=== PATIENT | male | born 1965 | race African-American/Black ===

== ENCOUNTER 2017-07-14 19:43 | Inpatient (IN) | payer MEDICAID ==
[~2017-07-14] VITALS: Ht 182.9 cm; Wt 92.3 kg
[~2017-07-14 19:43] MED LIST: LISI-661 PO; OMEP20 PO; QUET300T2 PO; ZOLPIDEM TARTRATE 10 MG TABLET PO PRN
[2017-07-14] MEDS ORDERED: PNEUMOCOCCAL VACCINE POLYVALENT 0.5 ML VIAL [PPSV23] IM ONE (20:15)
[2017-07-14 20:40] LABS: APPEARANCE,URINE CLEAR (CLEAR); GLUCOSE, URINE (UA) NEGATIVE (NEGATIVE); KETONES,URINE NEGATIVE (NEGATIVE); LEUKOCYTE ESTERASE ,URINE NEGATIVE (NEGATIVE); OCCULT BLOOD,URINE NEGATIVE (NEGATIVE); PROTEIN,URINE NEGATIVE (NEGATIVE)
[2017-07-14 20:41] LABS: ADD UA MICROSCOPIC NO
[2017-07-15 06:24] LABS: EOSINOPHILS # (AUTO) 0.19 K/uL (0.00-0.70); EOSINOPHILS % (AUTO) 4.37 % (1.0-6.0); HEMATOCRIT 40.5 % (41-53); HEMOGLOBIN 13.8 g/dL (13.5-17.5); LYMPHOCYTES # (AUTO) 1.3 K/uL (1.0-4.8); LYMPHOCYTES % (AUTO) 31.6 % (22.0-44.0); MEAN CORPUSCULAR HEMOGLOBIN 27.4 pg (26.0-34.0); MEAN CORPUSCULAR HGB CONC 34.1 G/dL (31.0-37.0); MEAN CORPUSCULAR VOLUME 80 fL (80-100); MONOCYTES # (AUTO) 0.2 K/uL (0.1-1.0); MONOCYTES % (AUTO) 4.7 % (2.0-9.0); NEUTROPHILS # (AUTO) 2.5 K/uL (1.8-7.7); NEUTROPHILS % (AUTO) 59.4 % (40.0-70.0); PLATELET COUNT (AUTO) 360 K/uL (150-450); RED BLOOD CELL COUNT(AUTO) 5.04 MIL/uL (4.50-5.90); RED CELL DISTRIBUTION WIDTH 15.3 % (11.5-14.5); WHITE BLOOD COUNT (AUTO) 4.2 K/uL (4.5-11.0)
[2017-07-15 06:40] LABS: HEMOGLOBIN A1C 6.2 % (4.5-6.2)
[2017-07-15 06:42] LABS: ALANINE AMINOTRANSFERASE 24 U/L (12-78); ALBUMIN 3.3 g/dL (3.4-5.0); ANION GAP 10 mmol/L (8-16); ASPARTATE AMINOTRANSFERASE 19 U/L (15-37); BILIRUBIN,TOTAL 0.8 mg/dL (0.1-1.0); CALCIUM, TOTAL 8.4 mg/dL (8.8-10.5); CARBON DIOXIDE 27 mmol/L (22-29); CHLORIDE 107 mmol/L (98-107); CHOL/HDL RATIO 2.3 (4.2-7.3); CREATININE 1.24 mg/dL (0.60-1.30); GLOMERULAR FILTR. RATE CALC > 60 mL/min (>60); POTASSIUM 3.8 mmol/L (3.5-5.1); SODIUM SERUM 144 mmol/L (136-145); TOTAL PROTEIN, SERUM 6.5 g/dL (6.4-8.2); UREA NITROGEN, BLOOD 13 mg/dL (7-18)
[2017-07-15 07:06] LABS: RBC MORPHOLOGY COMMENT NORMAL RBC MORPH
[2017-07-15 07:11] LABS: THYROID STIMULATING HORMONE 0.46 uIU/mL (0.36-3.74)
[2017-07-15] MEDS: LORazepam 2 MG TABLET PO PRN (08:24)
[2017-07-15] MEDS: HALOPERIDOL 5 MG TABLET PO PRN (08:24)
[2017-07-15 08:36] VITALS: BP 146/81
[2017-07-15 08:38] VITALS: BP 146/81
[2017-07-15 08:41] VITALS: BP 146/81
[2017-07-15] MEDS: LISINOPRIL 20 MG TABLET PO SCH (09:00)
[2017-07-15] MEDS: OMEPRAZOLE 20 MG CAPSULE PO SCH (09:00)
[2017-07-15] MEDS ORDERED: ALBUTEROL SULFATE HFA 90 MCG/PUFF 8 GM INHALER IH PRN (19:45)
[2017-07-15] MEDS ORDERED: IBUPROFEN 400 MG TABLET PO PRN (19:45)
[2017-07-15] MEDS ORDERED: ACETAMINOPHEN 325 MG TABLET PO PRN (19:45)
[2017-07-15] MEDS ORDERED: QUEtiapine FUMARATE 300 MG TABLET PO SCH (21:00)
[2017-07-15 21:30] VITALS: BP 124/82
[2017-07-16 00:23] VITALS: BP 110/67
[2017-07-16 08:09] VITALS: BP 100/64
[2017-07-16] MEDS: LISINOPRIL 20 MG TABLET PO SCH (08:56)
[2017-07-16] MEDS: OMEPRAZOLE 20 MG CAPSULE PO SCH (08:56)
[2017-07-16] MEDS: NICOTINE 14 MG/24 HOUR PATCH TD SCH (08:56)
[2017-07-16] MEDS ORDERED: QUEtiapine FUMARATE 25 MG TABLET PO SCH ×2 (09:00→17:00)
[2017-07-16 16:11] VITALS: BP 105/64
[2017-07-16] MEDS: PALIPERIDONE 3 MG ER TABLET PO SCH (17:18)
[2017-07-16] MEDS: SERTRALINE HCL 50 MG TABLET PO SCH (17:18)
[2017-07-16] MEDS: LORazepam 2 MG TABLET PO PRN (17:19)
[2017-07-16] MEDS: HALOPERIDOL 5 MG TABLET PO PRN (17:19)
[2017-07-17 06:42] VITALS: BP 126/69
[2017-07-17 08:32] VITALS: BP 127/62
[2017-07-17] MEDS: NICOTINE 14 MG/24 HOUR PATCH TD SCH (09:31)
[2017-07-17] MEDS: LISINOPRIL 20 MG TABLET PO SCH (09:31)
[2017-07-17] MEDS: PALIPERIDONE 3 MG ER TABLET PO SCH ×2 (09:31→16:52)
[2017-07-17] MEDS: SERTRALINE HCL 50 MG TABLET PO SCH (09:31)
[2017-07-17] MEDS: OMEPRAZOLE 20 MG CAPSULE PO SCH (09:31)
[2017-07-17 09:38] LABS: THYROID STIMULATING HORMONE 0.2 uIU/mL (0.36-3.74)
[2017-07-17 10:37] LABS: HEMOGLOBIN A1C 6.4 % (4.5-6.2)
[2017-07-17 16:47] VITALS: BP 138/82
[2017-07-17] MEDS: HALOPERIDOL 5 MG TABLET PO PRN (16:52)
[2017-07-17] MEDS: LORazepam 2 MG TABLET PO PRN (16:52)
[2017-07-18 00:30] VITALS: BP 110/66
[2017-07-18 08:05] VITALS: BP 108/60
[2017-07-18] MEDS: PALIPERIDONE 3 MG ER TABLET PO SCH ×2 (08:37→16:08)
[2017-07-18] MEDS: OMEPRAZOLE 20 MG CAPSULE PO SCH (08:38)
[2017-07-18] MEDS: SERTRALINE HCL 50 MG TABLET PO SCH (08:38)
[2017-07-18] MEDS: NICOTINE 14 MG/24 HOUR PATCH TD SCH (08:39)
[2017-07-18 08:49] VITALS: BP 103/59
[2017-07-18] MEDS: LISINOPRIL 20 MG TABLET PO SCH (08:49)
[2017-07-18 16:17] VITALS: BP 121/75
[2017-07-19 01:39] VITALS: BP 101/63
[2017-07-19 08:22] VITALS: BP 105/65
[2017-07-19] MEDS: NICOTINE 14 MG/24 HOUR PATCH TD SCH (09:36)
[2017-07-19] MEDS: LISINOPRIL 20 MG TABLET PO SCH (09:36)
[2017-07-19] MEDS: PALIPERIDONE 3 MG ER TABLET PO SCH ×2 (09:36→16:15)
[2017-07-19] MEDS: OMEPRAZOLE 20 MG CAPSULE PO SCH (09:36)
[2017-07-19] MEDS: SERTRALINE HCL 50 MG TABLET PO SCH (09:36)
[2017-07-19 16:17] VITALS: BP 115/63
[2017-07-20 03:18] VITALS: BP 120/76
[2017-07-20] MEDS: SERTRALINE HCL 100 MG TABLET PO SCH (08:50)
[2017-07-20] MEDS: OMEPRAZOLE 20 MG CAPSULE PO SCH (08:50)
[2017-07-20] MEDS: PALIPERIDONE 6 MG ER TABLET PO SCH ×2 (08:50→17:30)
[2017-07-20] MEDS: LISINOPRIL 20 MG TABLET PO SCH (08:50)
[2017-07-20] MEDS: NICOTINE 14 MG/24 HOUR PATCH TD SCH (08:51)
[2017-07-20 09:05] VITALS: BP 110/63
[2017-07-20 16:25] VITALS: BP 110/64
[2017-07-21 04:26] VITALS: BP 109/67
[2017-07-21] MEDS: NICOTINE 14 MG/24 HOUR PATCH TD SCH (08:31)
[2017-07-21] MEDS: SERTRALINE HCL 100 MG TABLET PO SCH (08:31)
[2017-07-21] MEDS: OMEPRAZOLE 20 MG CAPSULE PO SCH (08:31)
[2017-07-21] MEDS: PALIPERIDONE 6 MG ER TABLET PO SCH ×2 (08:31→16:56)
[2017-07-21] MEDS: LISINOPRIL 20 MG TABLET PO SCH (08:31)
[2017-07-21 09:04] VITALS: BP 100/62
[2017-07-21 16:30] VITALS: BP 107/65
[2017-07-22 00:44] VITALS: BP 112/70
[2017-07-22] MEDS: PALIPERIDONE 6 MG ER TABLET PO SCH ×2 (08:41→16:14)
[2017-07-22] MEDS: LISINOPRIL 20 MG TABLET PO SCH (08:41)
[2017-07-22] MEDS: OMEPRAZOLE 20 MG CAPSULE PO SCH (08:41)
[2017-07-22] MEDS: NICOTINE 14 MG/24 HOUR PATCH TD SCH (08:41)
[2017-07-22] MEDS: SERTRALINE HCL 100 MG TABLET PO SCH (08:41)
[2017-07-22 09:39] VITALS: BP 106/62
[2017-07-22 16:24] VITALS: BP 124/69
[2017-07-23 06:00] VITALS: BP 112/76
[2017-07-23] MEDS: LISINOPRIL 20 MG TABLET PO SCH (08:47)
[2017-07-23] MEDS: NICOTINE 14 MG/24 HOUR PATCH TD SCH ×2 (08:47→09:00)
[2017-07-23] MEDS: SERTRALINE HCL 100 MG TABLET PO SCH (08:47)
[2017-07-23] MEDS: PALIPERIDONE 6 MG ER TABLET PO SCH ×2 (08:47→16:27)
[2017-07-23] MEDS: OMEPRAZOLE 20 MG CAPSULE PO SCH (08:47)
[2017-07-23 08:56] VITALS: BP 119/71
[2017-07-23 16:36] VITALS: BP 104/66
[2017-07-24] VITALS: BP 116/60
[2017-07-24 08:23] VITALS: BP 108/65
[2017-07-24] MEDS: NICOTINE 14 MG/24 HOUR PATCH TD SCH (09:30)
[2017-07-24] MEDS: OMEPRAZOLE 20 MG CAPSULE PO SCH (09:30)
[2017-07-24] MEDS: PALIPERIDONE 6 MG ER TABLET PO SCH ×2 (09:30→16:06)
[2017-07-24] MEDS: LISINOPRIL 20 MG TABLET PO SCH (09:30)
[2017-07-24] MEDS: SERTRALINE HCL 100 MG TABLET PO SCH (09:30)
[2017-07-24 16:42] VITALS: BP 111/66
[2017-07-25 06:05] VITALS: BP 106/69
[2017-07-25 08:36] VITALS: BP 114/65
[2017-07-25] MEDS: NICOTINE 14 MG/24 HOUR PATCH TD SCH (09:00)
[2017-07-25] MEDS: LISINOPRIL 20 MG TABLET PO SCH (09:03)
[2017-07-25] MEDS: SERTRALINE HCL 100 MG TABLET PO SCH (09:03)
[2017-07-25] MEDS: OMEPRAZOLE 20 MG CAPSULE PO SCH (09:03)
[2017-07-25] MEDS: PALIPERIDONE 6 MG ER TABLET PO SCH ×2 (09:03→17:19)
[2017-07-25 16:30] VITALS: BP 113/72
[2017-07-26 05:11] VITALS: BP 106/68
[2017-07-26 08:49] VITALS: BP 110/63
[2017-07-26] MEDS: SERTRALINE HCL 100 MG TABLET PO SCH (08:50)
[2017-07-26] MEDS: LISINOPRIL 20 MG TABLET PO SCH (08:50)
[2017-07-26] MEDS: PALIPERIDONE 6 MG ER TABLET PO SCH ×2 (08:50→16:49)
[2017-07-26] MEDS: NICOTINE 14 MG/24 HOUR PATCH TD SCH (08:50)
[2017-07-26] MEDS: OMEPRAZOLE 20 MG CAPSULE PO SCH (08:50)
[2017-07-26 16:34] VITALS: BP 106/61
[2017-07-27 03:12] VITALS: BP 107/68
[2017-07-27 08:18] VITALS: BP 113/59
[2017-07-27] MEDS: NICOTINE 14 MG/24 HOUR PATCH TD SCH ×2 (09:00→10:06)
[2017-07-27] MEDS: OMEPRAZOLE 20 MG CAPSULE PO SCH (10:05)
[2017-07-27] MEDS: LISINOPRIL 20 MG TABLET PO SCH (10:05)
[2017-07-27] MEDS: PALIPERIDONE 6 MG ER TABLET PO SCH ×2 (10:05→16:06)
[2017-07-27] MEDS: SERTRALINE HCL 100 MG TABLET PO SCH (10:05)
[2017-07-27 16:39] VITALS: BP 105/65
[2017-07-28 01:51] VITALS: BP 103/67
[2017-07-28 08:50] VITALS: BP 120/60
[2017-07-28] MEDS: NICOTINE 14 MG/24 HOUR PATCH TD SCH (09:00)
[2017-07-28] MEDS: PALIPERIDONE 6 MG ER TABLET PO SCH ×2 (09:16→16:21)
[2017-07-28] MEDS: LISINOPRIL 20 MG TABLET PO SCH (09:16)
[2017-07-28] MEDS: OMEPRAZOLE 20 MG CAPSULE PO SCH (09:17)
[2017-07-28] MEDS: SERTRALINE HCL 100 MG TABLET PO SCH (09:17)
[2017-07-28 16:27] VITALS: BP 128/72
[2017-07-28] MEDS ORDERED: LISI-662 PO (23:15)
[2017-07-28] MEDS ORDERED: OMEP20 PO (23:15)
[2017-07-28] MEDS ORDERED: SERT100T12 PO (23:15)
[2017-07-28] MEDS ORDERED: PALI6 PO (23:15)
[2017-07-29 01:19] VITALS: BP 107/68
== END 2017-07-29 07:30 | disposition home or self-care (01) | DRG 750 ==
LOC: EMS 19:45 → AHU 07-15 05:37 → B2S 07-15 21:20
PROVIDERS: ADMIT Psychiatry & Neurology Psychiatry; ATTEND Psychiatry & Neurology Psychiatry
PROC: 3E0234Z Introduction of Serum, Toxoid and Vaccine into Muscle, Percutaneous Approach (ICD-10-PCS; principal; 2017-07-15)
DX: F25.0 Schizoaffective disorder, bipolar type (principal); R45.851 Suicidal ideations; I10 Essential (primary) hypertension; J44.9 Chronic obstructive pulmonary disease, unspecified; K21.9 Gastro-esophageal reflux disease without esophagitis; Z91.5 Personal history of self-harm; F12.90 Cannabis use, unspecified, uncomplicated; F15.90 Other stimulant use, unspecified, uncomplicated; R45.84 Anhedonia; F10.20 Alcohol dependence, uncomplicated; Z23 Encounter for immunization
CPT/HCPCS: 83036; 84436; 84439; 84443; 84481; 90471; 96372; 99285

== ENCOUNTER 2017-08-23 14:44 | Inpatient (IN) | payer MEDICAID ==
[~2017-08-23] VITALS: Ht 190.5 cm; Wt 95.7 kg
[~2017-08-23 14:44] MED LIST changes: -LISI-661 PO; +LISI-662 PO; +PALI6 PO; -QUET300T2 PO; +SERT100T12 PO; -ZOLPIDEM TARTRATE 10 MG TABLET PO PRN
[2017-08-23] MEDS ORDERED: INFLUENZA VIRUS VACCINE QVS 2017-18 (3YR+)/PF 60 MCG/0.5 ML SYRINGE IM ONE (16:30)
[2017-08-23] MEDS ORDERED: HALOPERIDOL 5 MG TABLET PO PRN (16:30)
[2017-08-23] MEDS ORDERED: -PHARMACY VACCINE NOTE- MISC ONE ×2 (16:30)
[2017-08-23 17:04] VITALS: BP 143/84
[2017-08-23] MEDS: LISINOPRIL 20 MG TABLET PO SCH (18:08)
[2017-08-23] MEDS: PALIPERIDONE 6 MG ER TABLET PO SCH (20:32)
[2017-08-24 06:22] VITALS: BP 137/82
[2017-08-24 08:20] VITALS: BP 108/67
[2017-08-24] MEDS: PALIPERIDONE 6 MG ER TABLET PO SCH ×2 (08:34→20:36)
[2017-08-24] MEDS: SERTRALINE HCL 100 MG TABLET PO SCH (08:34)
[2017-08-24] MEDS: LISINOPRIL 20 MG TABLET PO SCH (08:34)
[2017-08-24] MEDS: OMEPRAZOLE 20 MG CAPSULE PO SCH (08:35)
[2017-08-24 08:59] LABS: BASOPHILS # (AUTO) 0.02 K/uL (0.00-0.20); BASOPHILS % (AUTO) 0.6 % (0.0-2.0); EOSINOPHILS # (AUTO) 0.14 K/uL (0.00-0.70); EOSINOPHILS % (AUTO) 3.59 % (1.0-6.0); HEMATOCRIT 40.4 % (41-53); HEMOGLOBIN 13.2 g/dL (13.5-17.5); LYMPHOCYTES # (AUTO) 1.5 K/uL (1.0-4.8); LYMPHOCYTES % (AUTO) 38.9 % (22.0-44.0); MEAN CORPUSCULAR HEMOGLOBIN 27.3 pg (26.0-34.0); MEAN CORPUSCULAR HGB CONC 32.8 G/dL (31.0-37.0); MEAN CORPUSCULAR VOLUME 83 fL (80-100); MONOCYTES # (AUTO) 0.2 K/uL (0.1-1.0); MONOCYTES % (AUTO) 5.8 % (2.0-9.0); NEUTROPHILS % (AUTO) 51.2 % (40.0-70.0); PLATELET COUNT (AUTO) 282 K/uL (150-450); RED BLOOD CELL COUNT(AUTO) 4.85 MIL/uL (4.50-5.90); RED CELL DISTRIBUTION WIDTH 16.7 % (11.5-14.5); WHITE BLOOD COUNT (AUTO) 3.9 K/uL (4.5-11.0)
[2017-08-24 09:59] LABS: HEMOGLOBIN A1C 6.3 % (4.5-6.2)
[2017-08-24 10:04] LABS: ALANINE AMINOTRANSFERASE 21 U/L (12-78); ALBUMIN 3.1 g/dL (3.4-5.0); ANION GAP 5 mmol/L (8-16); ASPARTATE AMINOTRANSFERASE 10 U/L (15-37); BILIRUBIN,TOTAL 0.5 mg/dL (0.1-1.0); CALCIUM, TOTAL 8.6 mg/dL (8.8-10.5); CARBON DIOXIDE 31 mmol/L (22-29); CHLORIDE 106 mmol/L (98-107); CHOL/HDL RATIO 2.2 (4.2-7.3); CREATININE 1.16 mg/dL (0.60-1.30); GLOMERULAR FILTR. RATE CALC > 60 mL/min (>60); POTASSIUM 4.2 mmol/L (3.5-5.1); SODIUM SERUM 142 mmol/L (136-145); THYROID STIMULATING HORMONE 0.62 uIU/mL (0.36-3.74); TOTAL PROTEIN, SERUM 5.5 g/dL (6.4-8.2); UREA NITROGEN, BLOOD 10 mg/dL (7-18)
[2017-08-24] MEDS ORDERED: ACETAMINOPHEN 325 MG TABLET PO PRN (15:45)
[2017-08-24] MEDS ORDERED: IBUPROFEN 400 MG TABLET PO PRN (15:45)
[2017-08-24 16:00] VITALS: BP 114/71
[2017-08-24] MEDS: ZOLPIDEM TARTRATE 10 MG TABLET PO PRN (20:36)
[2017-08-25 06:29] VITALS: BP 125/72
[2017-08-25 08:14] VITALS: BP 101/60
[2017-08-25] MEDS: LISINOPRIL 20 MG TABLET PO SCH (08:55)
[2017-08-25] MEDS: PALIPERIDONE 6 MG ER TABLET PO SCH ×2 (08:55→21:01)
[2017-08-25] MEDS: OMEPRAZOLE 20 MG CAPSULE PO SCH (08:55)
[2017-08-25] MEDS ORDERED: SERTRALINE HCL 50 MG TABLET PO SCH (13:26)
[2017-08-25] MEDS ORDERED: SERTRALINE HCL 100 MG TABLET PO SCH (13:26)
[2017-08-25 16:21] VITALS: BP 114/68
[2017-08-25] MEDS: SERTRALINE HCL 100 MG TABLET PO SCH (17:10)
[2017-08-25] MEDS: ZOLPIDEM TARTRATE 10 MG TABLET PO PRN (21:01)
[2017-08-26 06:35] VITALS: BP 127/72
[2017-08-26 09:07] VITALS: BP 104/63
[2017-08-26] MEDS: PALIPERIDONE 6 MG ER TABLET PO SCH ×2 (09:23→21:22)
[2017-08-26] MEDS: LISINOPRIL 20 MG TABLET PO SCH (09:23)
[2017-08-26] MEDS: SERTRALINE HCL 100 MG TABLET PO SCH (09:23)
[2017-08-26] MEDS: OMEPRAZOLE 20 MG CAPSULE PO SCH (09:23)
[2017-08-26 16:41] VITALS: BP 117/67
[2017-08-26] MEDS: LORazepam 2 MG TABLET PO PRN (17:51)
[2017-08-26] MEDS: ZOLPIDEM TARTRATE 10 MG TABLET PO PRN (21:22)
[2017-08-27 06:33] VITALS: BP 102/61
[2017-08-27 08:24] VITALS: BP 104/62
[2017-08-27] MEDS: LISINOPRIL 20 MG TABLET PO SCH (09:11)
[2017-08-27] MEDS: OMEPRAZOLE 20 MG CAPSULE PO SCH (09:11)
[2017-08-27] MEDS: SERTRALINE HCL 100 MG TABLET PO SCH (09:11)
[2017-08-27] MEDS: PALIPERIDONE 6 MG ER TABLET PO SCH ×2 (09:11→21:03)
[2017-08-27 16:00] VITALS: BP 110/66
[2017-08-27] MEDS: LORazepam 2 MG TABLET PO PRN (21:03)
[2017-08-28 05:00] VITALS: BP 117/82
[2017-08-28 08:18] VITALS: BP 103/67
[2017-08-28] MEDS: SERTRALINE HCL 100 MG TABLET PO SCH (09:11)
[2017-08-28] MEDS: LISINOPRIL 20 MG TABLET PO SCH (09:11)
[2017-08-28] MEDS: OMEPRAZOLE 20 MG CAPSULE PO SCH (09:11)
[2017-08-28] MEDS: PALIPERIDONE 6 MG ER TABLET PO SCH ×2 (09:11→20:37)
[2017-08-28 16:00] VITALS: BP 116/68
[2017-08-29 06:35] VITALS: BP 121/78
[2017-08-29 08:17] VITALS: BP 102/61
[2017-08-29] MEDS: LISINOPRIL 20 MG TABLET PO SCH (08:53)
[2017-08-29] MEDS: SERTRALINE HCL 100 MG TABLET PO SCH (08:53)
[2017-08-29] MEDS: OMEPRAZOLE 20 MG CAPSULE PO SCH (08:53)
[2017-08-29] MEDS: PALIPERIDONE 6 MG ER TABLET PO SCH ×2 (08:53→20:32)
[2017-08-29 16:00] VITALS: BP 110/66
[2017-08-29] MEDS: ZOLPIDEM TARTRATE 10 MG TABLET PO PRN (20:32)
[2017-08-30 06:32] VITALS: BP 118/73
[2017-08-30 08:16] VITALS: BP 101/57
[2017-08-30] MEDS: OMEPRAZOLE 20 MG CAPSULE PO SCH (08:16)
[2017-08-30] MEDS: PALIPERIDONE 6 MG ER TABLET PO SCH (08:16)
[2017-08-30] MEDS: SERTRALINE HCL 100 MG TABLET PO SCH (08:16)
[2017-08-30] MEDS: LISINOPRIL 20 MG TABLET PO SCH (08:16)
[2017-08-30] MEDS ORDERED: PALI6 PO (14:10)
[2017-08-30] MEDS ORDERED: SERT100T12 PO (14:10)
[2017-09-24] MEDS ORDERED: PALIPERIDONE PALMITATE 234 MG/1.5 ML SYRINGE IM SCH (09:00)
== END 2017-08-30 14:30 | disposition home or self-care (01) | DRG 750 ==
LOC: B3A 16:19
PROVIDERS: ADMIT Psychiatry & Neurology Psychiatry; ATTEND Psychiatry & Neurology Psychiatry
DX: F25.0 Schizoaffective disorder, bipolar type (principal); R45.851 Suicidal ideations; F15.20 Other stimulant dependence, uncomplicated; R45.850 Homicidal ideations; I10 Essential (primary) hypertension; F32.9 Major depressive disorder, single episode, unspecified; F10.10 Alcohol abuse, uncomplicated; F41.9 Anxiety disorder, unspecified; J44.9 Chronic obstructive pulmonary disease, unspecified; K21.9 Gastro-esophageal reflux disease without esophagitis; Z91.5 Personal history of self-harm; F19.10 Other psychoactive substance abuse, uncomplicated; Z71.41 Alcohol abuse counseling and surveillance of alcoholic; Z71.51 Drug abuse counseling and surveillance of drug abuser; Z28.21 Immunization not carried out because of patient refusal
CPT/HCPCS: 83036; 84439; 84443; 87081

== ENCOUNTER 2017-09-12 00:57 | Inpatient (IN) | payer MEDICAID ==
[~2017-09-12] VITALS: Ht 190.5 cm; Wt 89.8 kg
[2017-09-12 01:30] VITALS: BP 136/96
[2017-09-12] MEDS ORDERED: HALOPERIDOL 5 MG TABLET PO PRN (02:00)
[2017-09-12] MEDS ORDERED: LORazepam 2 MG TABLET PO PRN (02:00)
[2017-09-12 03:05] VITALS: BP 138/67
[2017-09-12] MEDS ORDERED: -PHARMACY VACCINE NOTE- MISC ONE ×2 (06:15)
[2017-09-12] MEDS ORDERED: INFLUENZA VIRUS VACCINE QVS 2017-18 (3YR+)/PF 60 MCG/0.5 ML SYRINGE IM ONE (06:15)
[2017-09-12 08:20] VITALS: BP 136/84
[2017-09-12] MEDS ORDERED: ACETAMINOPHEN 325 MG TABLET PO PRN ×2 (08:30→15:00)
[2017-09-12 10:13] LABS: GLUCOSE, URINE (UA) NEGATIVE (NEGATIVE); KETONES,URINE NEGATIVE (NEGATIVE); LEUKOCYTE ESTERASE ,URINE NEGATIVE (NEGATIVE); OCCULT BLOOD,URINE TRACE (NEGATIVE); PH,URINE 5.5 (5.0-8.0); PROTEIN,URINE TRACE (NEGATIVE)
[2017-09-12 10:17] LABS: ADD UA MICROSCOPIC YES; APPEARANCE,URINE SLIGHTLY CLOUDY (CLEAR)
[2017-09-12 10:19] LABS: RBC,URINE 0-2 /HPF (0-2); WBC,URINE 0-2 /HPF (0-5)
[2017-09-12 10:20] LABS: CALCIUM OXALATE CRYSTALS,UR Many /LPF (None Seen); SQUAMOUS EPITHELIAL CELL,UR Rare /LPF (None Seen)
[2017-09-12 10:21] LABS: URINALYSIS COMMENT Few Sperm seen.
[2017-09-12] MEDS ORDERED: IBUPROFEN 400 MG TABLET PO PRN (15:00)
[2017-09-12] MEDS ORDERED: ALBUTEROL SULFATE HFA 90 MCG/PUFF 8 GM INHALER IH PRN (15:00)
[2017-09-12 16:00] VITALS: BP 115/72
[2017-09-12] MEDS: ZOLPIDEM TARTRATE 10 MG TABLET PO PRN (20:46)
[2017-09-12] MEDS: PALIPERIDONE 6 MG ER TABLET PO SCH (20:46)
[2017-09-13 06:58] VITALS: BP 128/73
[2017-09-13 08:13] VITALS: BP 132/76
[2017-09-13 08:43] LABS: HEMOGLOBIN A1C 6.1 % (4.5-6.2)
[2017-09-13 08:51] LABS: EOSINOPHILS % (AUTO) 7.9 % (1.0-6.0); HEMATOCRIT 39.6 % (41-53); HEMOGLOBIN 13.5 g/dL (13.5-17.5); LYMPHOCYTES # (AUTO) 0.9 K/uL (1.0-4.8); LYMPHOCYTES % (AUTO) 25.1 % (22.0-44.0); MEAN CORPUSCULAR HEMOGLOBIN 27.7 pg (26.0-34.0); MEAN CORPUSCULAR VOLUME 81 fL (80-100); MONOCYTES # (AUTO) 0.3 K/uL (0.1-1.0); NEUTROPHILS # (AUTO) 2.2 K/uL (1.8-7.7); PLATELET COUNT (AUTO) 259 K/uL (150-450); RED BLOOD CELL COUNT(AUTO) 4.86 MIL/uL (4.50-5.90); RED CELL DISTRIBUTION WIDTH 15.7 % (11.5-14.5); WHITE BLOOD COUNT (AUTO) 3.7 K/uL (4.5-11.0)
[2017-09-13 08:59] LABS: ALANINE AMINOTRANSFERASE 29 U/L (12-78); ALBUMIN 3.1 g/dL (3.4-5.0); ANION GAP 3 mmol/L (8-16); ASPARTATE AMINOTRANSFERASE 17 U/L (15-37); BILIRUBIN,TOTAL 0.5 mg/dL (0.1-1.0); CALCIUM, TOTAL 8.7 mg/dL (8.8-10.5); CARBON DIOXIDE 30 mmol/L (22-29); CHLORIDE 106 mmol/L (98-107); CHOL/HDL RATIO 2.1 (4.2-7.3); CREATININE 1.16 mg/dL (0.60-1.30); GLOMERULAR FILTR. RATE CALC > 60 mL/min (>60); POTASSIUM 3.8 mmol/L (3.5-5.1); SODIUM SERUM 139 mmol/L (136-145); THYROID STIMULATING HORMONE 0.29 uIU/mL (0.36-3.74); UREA NITROGEN, BLOOD 13 mg/dL (7-18)
[2017-09-13] MEDS ORDERED: PALIPERIDONE PALMITATE 234 MG/1.5 ML SYRINGE IM SCH (09:00)
[2017-09-13] MEDS: PALIPERIDONE 6 MG ER TABLET PO SCH ×2 (09:57→20:27)
[2017-09-13] MEDS: SERTRALINE HCL 100 MG TABLET PO SCH (09:57)
[2017-09-13 10:36] LABS: RBC MORPHOLOGY COMMENT ABNORMAL RBC MORPH
[2017-09-13 16:00] VITALS: BP 112/73
[2017-09-13] MEDS: ZOLPIDEM TARTRATE 10 MG TABLET PO PRN (20:27)
[2017-09-14 06:42] VITALS: BP 125/80
[2017-09-14] MEDS: PALIPERIDONE 6 MG ER TABLET PO SCH ×2 (08:22→21:05)
[2017-09-14] MEDS: SERTRALINE HCL 100 MG TABLET PO SCH (08:22)
[2017-09-14 08:27] VITALS: BP 117/64
[2017-09-14 16:20] VITALS: BP 124/80
[2017-09-14] MEDS: ZOLPIDEM TARTRATE 10 MG TABLET PO PRN (21:05)
[2017-09-15 06:31] VITALS: BP 119/67
[2017-09-15 08:06] VITALS: BP 116/69
[2017-09-15] MEDS: SERTRALINE HCL 100 MG TABLET PO SCH (09:34)
[2017-09-15] MEDS: PALIPERIDONE 6 MG ER TABLET PO SCH ×2 (09:34→21:06)
[2017-09-15 16:00] VITALS: BP 114/78
[2017-09-15] MEDS: ZOLPIDEM TARTRATE 10 MG TABLET PO PRN (21:06)
[2017-09-16 06:00] VITALS: BP 125/74
[2017-09-16 08:33] VITALS: BP 107/61
[2017-09-16] MEDS: PALIPERIDONE 6 MG ER TABLET PO SCH ×2 (08:39→21:06)
[2017-09-16] MEDS: SERTRALINE HCL 100 MG TABLET PO SCH (08:39)
[2017-09-16 16:12] VITALS: BP 119/67
[2017-09-17 01:45] VITALS: BP 114/63
[2017-09-17 08:03] VITALS: BP 118/67
[2017-09-17] MEDS: SERTRALINE HCL 100 MG TABLET PO SCH (08:04)
[2017-09-17] MEDS: PALIPERIDONE 6 MG ER TABLET PO SCH ×2 (08:04→21:09)
[2017-09-17 16:01] VITALS: BP 129/71
[2017-09-18 04:32] VITALS: BP 119/65
[2017-09-18 08:06] VITALS: BP 111/58
[2017-09-18] MEDS: SERTRALINE HCL 100 MG TABLET PO SCH (08:14)
[2017-09-18] MEDS: PALIPERIDONE 6 MG ER TABLET PO SCH ×2 (08:14→20:24)
[2017-09-18 16:10] VITALS: BP 102/67
[2017-09-19 04:59] VITALS: BP 126/74
[2017-09-19 08:25] VITALS: BP 115/63
[2017-09-19] MEDS: PALIPERIDONE 6 MG ER TABLET PO SCH (09:17)
[2017-09-19] MEDS: SERTRALINE HCL 100 MG TABLET PO SCH (09:17)
== END 2017-09-19 15:15 | disposition home or self-care (01) | DRG 750 ==
LOC: B3A 01:56 → EDSTATUS 01:59 → B2S 09-15 22:00
PROVIDERS: ADMIT Psychiatry & Neurology Psychiatry; ATTEND Psychiatry & Neurology Psychiatry
DX: F25.0 Schizoaffective disorder, bipolar type (principal); R45.850 Homicidal ideations; I10 Essential (primary) hypertension; F41.9 Anxiety disorder, unspecified; F10.10 Alcohol abuse, uncomplicated; J44.9 Chronic obstructive pulmonary disease, unspecified; K21.9 Gastro-esophageal reflux disease without esophagitis; Z91.5 Personal history of self-harm; Z28.21 Immunization not carried out because of patient refusal
CPT/HCPCS: 80307; 83036; 84439; 84443; 87081; 99285

== ENCOUNTER 2017-09-23 01:51 | Emergency (ER) | payer MEDICAID ==
[~2017-09-23] VITALS: Ht 190.5 cm; Wt 90.0 kg
[~2017-09-23 01:51] MED LIST changes: -LISI-662 PO; -OMEP20 PO
[2017-09-23] MEDS ORDERED: LISI10TA7 PO (03:57)
[2017-09-23] MEDS ORDERED: HALOPERIDOL 5 MG TABLET PO ONE (04:00)
[2017-09-23] MEDS ORDERED: LORazepam 2 MG TABLET PO ONE (04:00)
[2017-09-23 04:57] LABS: BASOPHILS % (AUTO) 0.4 % (0.0-2.0); EOSINOPHILS % (AUTO) 1.9 % (1.0-6.0); HEMATOCRIT 38.6 % (41-53); HEMOGLOBIN 13.1 g/dL (13.5-17.5); LYMPHOCYTES # (AUTO) 1.1 K/uL (1.0-4.8); LYMPHOCYTES % (AUTO) 26.3 % (22.0-44.0); MEAN CORPUSCULAR HEMOGLOBIN 27.7 pg (26.0-34.0); MEAN CORPUSCULAR HGB CONC 33.8 G/dL (31.0-37.0); MEAN CORPUSCULAR VOLUME 82 fL (80-100); MONOCYTES # (AUTO) 0.4 K/uL (0.1-1.0); MONOCYTES % (AUTO) 10.2 % (2.0-9.0); NEUTROPHILS # (AUTO) 2.5 K/uL (1.8-7.7); NEUTROPHILS % (AUTO) 61.2 % (40.0-70.0); PLATELET COUNT (AUTO) 308 K/uL (150-450); RED BLOOD CELL COUNT(AUTO) 4.72 MIL/uL (4.50-5.90); RED CELL DISTRIBUTION WIDTH 15.6 % (11.5-14.5); WHITE BLOOD COUNT (AUTO) 4.1 K/uL (4.5-11.0)
[2017-09-23 05:05] LABS: ANION GAP 7 mmol/L (8-16); CALCIUM, TOTAL 8.9 mg/dL (8.8-10.5); CARBON DIOXIDE 30 mmol/L (22-29); CHLORIDE 104 mmol/L (98-107); GLOMERULAR FILTR. RATE CALC > 60 mL/min (>60); POTASSIUM 3.7 mmol/L (3.5-5.1); SODIUM SERUM 141 mmol/L (136-145); UREA NITROGEN, BLOOD 17 mg/dL (7-18)
[2017-09-23 05:20] LABS: ALANINE AMINOTRANSFERASE 30 U/L (12-78); ALBUMIN 3.7 g/dL (3.4-5.0); ASPARTATE AMINOTRANSFERASE 23 U/L (15-37); BILIRUBIN,TOTAL 0.6 mg/dL (0.1-1.0); TOTAL PROTEIN, SERUM 6.8 g/dL (6.4-8.2)
[2017-09-23 08:20] VITALS: BP 131/89
== END 2017-09-23 08:11 | disposition home or self-care (01) ==
LOC: EMS 03:38
DX: F20.0 Paranoid schizophrenia (principal); J44.9 Chronic obstructive pulmonary disease, unspecified; K21.9 Gastro-esophageal reflux disease without esophagitis; F17.210 Nicotine dependence, cigarettes, uncomplicated; I10 Essential (primary) hypertension; F12.90 Cannabis use, unspecified, uncomplicated; F19.90 Other psychoactive substance use, unspecified, uncomplicated
CPT/HCPCS: 36415; 80053; 84443; 85025; 93005; 99285; 99406; G0480

== ENCOUNTER 2017-11-17 21:15 | Inpatient (IN) | payer MEDICAID ==
[~2017-11-17] VITALS: Ht 190.5 cm; Wt 102.1 kg
[~2017-11-17 21:15] MED LIST changes: +LISI10TA7 PO
[2017-11-17] MEDS ORDERED: ZOLPIDEM TARTRATE 10 MG TABLET PO PRN (21:45)
[2017-11-17] MEDS ORDERED: LORazepam 2 MG TABLET PO PRN (21:45)
[2017-11-17 21:48] VITALS: BP 142/97
[2017-11-17] MEDS ORDERED: INFLUENZA VIRUS VACCINE QVS 2017-18 (3YR+)/PF 60 MCG/0.5 ML SYRINGE IM ONE (22:00)
[2017-11-18] VITALS: BP 130/80
[2017-11-18 08:40] VITALS: BP 129/88
[2017-11-18] MEDS: LISINOPRIL 20 MG TABLET PO SCH (08:41)
[2017-11-18] MEDS: SERTRALINE HCL 100 MG TABLET PO SCH (12:40)
[2017-11-18 16:00] VITALS: BP 128/67
[2017-11-19 00:05] VITALS: BP 121/69
[2017-11-19 08:33] VITALS: BP 124/78
[2017-11-19] MEDS: PALIPERIDONE 6 MG ER TABLET PO SCH (09:00)
[2017-11-19] MEDS: LISINOPRIL 20 MG TABLET PO SCH (09:20)
[2017-11-19] MEDS: SERTRALINE HCL 100 MG TABLET PO SCH (09:20)
[2017-11-19 16:19] VITALS: BP 139/92
[2017-11-20 05:54] VITALS: BP 133/89
[2017-11-20] MEDS: LISINOPRIL 20 MG TABLET PO SCH (08:48)
[2017-11-20 08:49] VITALS: BP 130/79
[2017-11-20] MEDS: SERTRALINE HCL 100 MG TABLET PO SCH (08:51)
[2017-11-20] MEDS: PALIPERIDONE 6 MG ER TABLET PO SCH (08:51)
[2017-11-20 16:18] VITALS: BP 127/74
[2017-11-21 05:40] VITALS: BP 125/68
[2017-11-21] MEDS: LISINOPRIL 20 MG TABLET PO SCH (08:22)
[2017-11-21] MEDS: SERTRALINE HCL 100 MG TABLET PO SCH (08:22)
[2017-11-21] MEDS: PALIPERIDONE 6 MG ER TABLET PO SCH (08:23)
[2017-11-21 08:24] VITALS: BP 110/66
[2017-11-21 16:56] VITALS: BP 138/81
[2017-11-22 00:40] VITALS: BP 120/81
[2017-11-22 08:18] VITALS: BP 111/62
[2017-11-22 08:31] LABS: BASOPHILS # (AUTO) 0.04 K/uL (0.00-0.20); BASOPHILS % (AUTO) 0.9 % (0.0-2.0); EOSINOPHILS # (AUTO) 0.17 K/uL (0.00-0.70); EOSINOPHILS % (AUTO) 3.93 % (1.0-6.0); HEMATOCRIT 46.9 % (41-53); HEMOGLOBIN 15.2 g/dL (13.5-17.5); LYMPHOCYTES # (AUTO) 1.4 K/uL (1.0-4.8); LYMPHOCYTES % (AUTO) 32.4 % (22.0-44.0); MEAN CORPUSCULAR HEMOGLOBIN 27.2 pg (26.0-34.0); MEAN CORPUSCULAR HGB CONC 32.5 G/dL (31.0-37.0); MEAN CORPUSCULAR VOLUME 84 fL (80-100); MONOCYTES # (AUTO) 0.3 K/uL (0.1-1.0); MONOCYTES % (AUTO) 6.5 % (2.0-9.0); NEUTROPHILS # (AUTO) 2.5 K/uL (1.8-7.7); NEUTROPHILS % (AUTO) 56.2 % (40.0-70.0); PLATELET COUNT (AUTO) 268 K/uL (150-450); RED CELL DISTRIBUTION WIDTH 14.6 % (11.5-14.5)
[2017-11-22] MEDS: LISINOPRIL 20 MG TABLET PO SCH (08:59)
[2017-11-22 09:00] LABS: ALANINE AMINOTRANSFERASE 17 U/L (12-78); ALBUMIN 3.3 g/dL (3.4-5.0); ALKALINE PHOSPHATASE 109 U/L (46-116); ANION GAP 6 mmol/L (8-16); ASPARTATE AMINOTRANSFERASE 10 U/L (15-37); BILIRUBIN,TOTAL 0.4 mg/dL (0.1-1.0); CALCIUM, TOTAL 8.9 mg/dL (8.8-10.5); CARBON DIOXIDE 29 mmol/L (22-29); CHLORIDE 101 mmol/L (98-107); CHOL/HDL RATIO 3.1 (4.2-7.3); CHOLESTEROL 183 mg/dL (131-200); CREATININE 1.19 mg/dL (0.60-1.30); FREE T4 (FREE THYROXINE) 0.83 ng/dL (0.76-1.46); GLOMERULAR FILTR. RATE CALC > 60 mL/min (>60); GLUCOSE,RANDOM 97 mg/dL (70-110); HDL CHOLESTEROL 60 mg/dL (40-60); LDL CHOL (CALC.) 106 mg/dL (0-130); POTASSIUM 4.3 mmol/L (3.5-5.1); SODIUM SERUM 136 mmol/L (136-145); THYROID STIMULATING HORMONE 1.55 uIU/mL (0.36-3.74); TRIGLYCERIDES 83 mg/dL (15-150); UREA NITROGEN, BLOOD 15 mg/dL (7-18)
[2017-11-22] MEDS: SERTRALINE HCL 100 MG TABLET PO SCH (09:00)
[2017-11-22] MEDS: PALIPERIDONE 6 MG ER TABLET PO SCH (09:00)
[2017-11-22 10:05] LABS: HEMOGLOBIN A1C 5.9 % (4.5-6.2)
== END 2017-11-22 13:36 | disposition home or self-care (01) | DRG 750 ==
LOC: B2S 21:34 → EDSTATUS 21:45 → B2S 11-19 16:21
PROVIDERS: ADMIT Psychiatry & Neurology Child & Adolescent Psychiatry; ATTEND Psychiatry & Neurology Child & Adolescent Psychiatry
PROC: 3E0234Z Introduction of Serum, Toxoid and Vaccine into Muscle, Percutaneous Approach (ICD-10-PCS; principal; 2017-11-17)
DX: F25.0 Schizoaffective disorder, bipolar type (principal); I10 Essential (primary) hypertension; F10.10 Alcohol abuse, uncomplicated; J44.9 Chronic obstructive pulmonary disease, unspecified; K21.9 Gastro-esophageal reflux disease without esophagitis; F19.10 Other psychoactive substance abuse, uncomplicated; Z23 Encounter for immunization
CPT/HCPCS: 83036; 84439; 84443

== ENCOUNTER 2018-05-15 01:24 | Inpatient (IN) | payer MEDICAID ==
[~2018-05-15] VITALS: Ht 190.5 cm; Wt 98.4 kg
[~2018-05-15 01:24] MED LIST changes: +CHLO50 PO; -LISI10TA7 PO; -PALI6 PO
[2018-05-15] MEDS ORDERED: RISP2 PO (04:55)
[2018-05-15] MEDS ORDERED: CITA-106 PO (04:55)
[2018-05-15 05:04] VITALS: BP 152/103
[2018-05-15] MEDS ORDERED: ZOLPIDEM TARTRATE 10 MG TABLET PO PRN (05:15)
[2018-05-15] MEDS ORDERED: LORazepam 2 MG TABLET PO PRN (05:15)
[2018-05-15] MEDS ORDERED: HALOPERIDOL 5 MG TABLET PO PRN (05:15)
[2018-05-15 05:43] VITALS: BP 147/97
[2018-05-15] MEDS ORDERED: -PHARMACY VACCINE NOTE- MISC ONE (06:00)
[2018-05-15] MEDS ORDERED: ONDANSETRON HCL 4 MG TABLET PO PRN (07:30)
[2018-05-15] MEDS ORDERED: DOCUSATE SODIUM 100 MG CAPSULE PO PRN (07:30)
[2018-05-15] MEDS ORDERED: PETROLATUM,WHITE 71 GM JELLY TP PRN (07:30)
[2018-05-15] MEDS ORDERED: LOPERAMIDE HCL 2 MG CAPSULE PO PRN (07:30)
[2018-05-15] MEDS ORDERED: MAG HYDROX/AL HYDROX/SIMETH ES 30 ML SUSPENSION UDCUP PO PRN (07:30)
[2018-05-15] MEDS ORDERED: IBUPROFEN 400 MG TABLET PO PRN (07:30)
[2018-05-15] MEDS ORDERED: ALBUTEROL SULFATE HFA 90 MCG/PUFF 8 GM INHALER IH PRN (07:30)
[2018-05-15] MEDS ORDERED: ACETAMINOPHEN 325 MG TABLET PO PRN (07:30)
[2018-05-15] MEDS ORDERED: CloNIDine HCL 0.1 MG TABLET PO PRN (07:30)
[2018-05-15] MEDS ORDERED: MAGNESIUM HYDROXIDE SUSPENSION 30 ML UDCUP PO PRN (07:30)
[2018-05-15 08:17] VITALS: BP 139/89
[2018-05-15] MEDS: NICOTINE 14 MG/24 HOUR PATCH TD SCH (09:00)
[2018-05-15 16:00] VITALS: BP 138/86
[2018-05-15] MEDS: RisperiDONE 2 MG TABLET PO SCH (21:11)
[2018-05-16 05:10] VITALS: BP 115/76
[2018-05-16 08:06] VITALS: BP 118/61
[2018-05-16] MEDS: NICOTINE 14 MG/24 HOUR PATCH TD SCH (08:30)
[2018-05-16] MEDS ORDERED: CITALOPRAM HYDROBROMIDE 20 MG TABLET PO SCH (09:00)
[2018-05-16 16:42] VITALS: BP 122/69
[2018-05-16] MEDS: RisperiDONE 2 MG TABLET PO SCH (21:55)
[2018-05-17 06:25] VITALS: BP 132/80
[2018-05-17 08:10] VITALS: BP 112/65
[2018-05-17] MEDS: NICOTINE 14 MG/24 HOUR PATCH TD SCH (09:00)
[2018-05-17] MEDS ORDERED: CITALOPRAM HYDROBROMIDE 10 MG TABLET PO ONE (10:30)
[2018-05-17] MEDS: RisperiDONE 2 MG TABLET PO SCH ×2 (10:50→20:26)
[2018-05-17 16:07] VITALS: BP 119/63
[2018-05-18 06:21] VITALS: BP 117/67
[2018-05-18 08:30] VITALS: BP 101/56
[2018-05-18] MEDS: CITALOPRAM HYDROBROMIDE 10 MG TABLET PO SCH (08:42)
[2018-05-18] MEDS: NICOTINE 14 MG/24 HOUR PATCH TD SCH (08:43)
[2018-05-18] MEDS: RisperiDONE 2 MG TABLET PO SCH ×2 (08:43→20:32)
[2018-05-18 16:00] VITALS: BP 115/75
[2018-05-19 07:00] VITALS: BP 112/63
[2018-05-19 08:18] VITALS: BP 103/53
[2018-05-19] MEDS: CITALOPRAM HYDROBROMIDE 10 MG TABLET PO SCH (09:19)
[2018-05-19] MEDS: RisperiDONE 2 MG TABLET PO SCH ×2 (09:20→20:28)
[2018-05-19 16:00] VITALS: BP 112/69
[2018-05-20 06:50] VITALS: BP 104/71
[2018-05-20] MEDS: RisperiDONE 2 MG TABLET PO SCH ×2 (08:12→21:19)
[2018-05-20] MEDS: CITALOPRAM HYDROBROMIDE 10 MG TABLET PO SCH (08:12)
[2018-05-20 09:05] LABS: BASOPHILS % (AUTO) 2.8 % (0.0-2.0); EOSINOPHILS % (AUTO) 4.9 % (1.0-6.0); HEMATOCRIT 38.5 % (41-53); LYMPHOCYTES % (AUTO) 36.9 % (22.0-44.0); MEAN CORPUSCULAR HEMOGLOBIN 27.5 pg (26.0-34.0); MEAN CORPUSCULAR HGB CONC 33.7 G/dL (31.0-37.0); MEAN CORPUSCULAR VOLUME 82 fL (80-100); MONOCYTES # (AUTO) 0.2 K/uL (0.1-1.0); MONOCYTES % (AUTO) 8.7 % (2.0-9.0); NEUTROPHILS # (AUTO) 1.3 K/uL (1.8-7.7); NEUTROPHILS % (AUTO) 46.7 % (40.0-70.0); PLATELET COUNT (AUTO) 406 K/uL (150-450); RED BLOOD CELL COUNT(AUTO) 4.72 MIL/uL (4.50-5.90); RED CELL DISTRIBUTION WIDTH 15.5 % (11.5-14.5)
[2018-05-20 09:38] LABS: HEMOGLOBIN A1C 5.8 % (4.5-6.2)
[2018-05-20 10:03] LABS: ALANINE AMINOTRANSFERASE 16 U/L (12-78); ALBUMIN 3.2 g/dL (3.4-5.0); ALKALINE PHOSPHATASE 92 U/L (46-116); ANION GAP 8 mmol/L (8-16); ASPARTATE AMINOTRANSFERASE 10 U/L (15-37); BILIRUBIN,TOTAL 0.4 mg/dL (0.1-1.0); CALCIUM, TOTAL 8.9 mg/dL (8.8-10.5); CARBON DIOXIDE 25 mmol/L (22-29); CHLORIDE 105 mmol/L (98-107); CHOL/HDL RATIO 2.8 (4.2-7.3); CHOLESTEROL 157 mg/dL (131-200); CREATININE 1.13 mg/dL (0.60-1.30); FREE T4 (FREE THYROXINE) 0.71 ng/dL (0.76-1.46); GLOMERULAR FILTR. RATE CALC > 60 mL/min (>60); GLUCOSE,RANDOM 74 mg/dL (70-110); HDL CHOLESTEROL 56 mg/dL (40-60); LDL CHOL (CALC.) 89 mg/dL (0-130); SODIUM SERUM 138 mmol/L (136-145); TOTAL PROTEIN, SERUM 6.3 g/dL (6.4-8.2); TRIGLYCERIDES 62 mg/dL (15-150); UREA NITROGEN, BLOOD 14 mg/dL (7-18)
[2018-05-20 10:49] VITALS: BP 110/68
[2018-05-20 16:00] VITALS: BP 136/75
[2018-05-21 02:26] VITALS: BP 125/69
[2018-05-21 09:11] VITALS: BP 111/63
[2018-05-21] MEDS: RisperiDONE 2 MG TABLET PO SCH ×2 (09:27→20:34)
[2018-05-21] MEDS: CITALOPRAM HYDROBROMIDE 10 MG TABLET PO SCH (09:27)
[2018-05-21 16:00] VITALS: BP 116/78
[2018-05-22 00:23] VITALS: BP 113/63
[2018-05-22 08:19] VITALS: BP 114/67
[2018-05-22] MEDS: RisperiDONE 2 MG TABLET PO SCH ×2 (09:13→20:42)
[2018-05-22] MEDS: CITALOPRAM HYDROBROMIDE 10 MG TABLET PO SCH (09:13)
[2018-05-22 16:00] VITALS: BP 111/78
[2018-05-23 06:37] VITALS: BP 122/68
[2018-05-23 08:17] VITALS: BP 135/65
[2018-05-23] MEDS: CITALOPRAM HYDROBROMIDE 10 MG TABLET PO SCH (09:23)
[2018-05-23] MEDS: RisperiDONE 2 MG TABLET PO SCH ×2 (09:23→20:41)
[2018-05-23 16:00] VITALS: BP 116/64
[2018-05-24 06:19] VITALS: BP 110/62
[2018-05-24 08:00] VITALS: BP 121/76
[2018-05-24] MEDS: RisperiDONE 2 MG TABLET PO SCH ×2 (08:07→20:07)
[2018-05-24] MEDS: CITALOPRAM HYDROBROMIDE 10 MG TABLET PO SCH (08:07)
[2018-05-24 16:48] VITALS: BP 125/72
[2018-05-25 06:00] VITALS: BP 137/77
[2018-05-25 08:27] VITALS: BP 124/63
[2018-05-25] MEDS: CITALOPRAM HYDROBROMIDE 10 MG TABLET PO SCH (09:16)
[2018-05-25] MEDS: RisperiDONE 2 MG TABLET PO SCH ×2 (09:17→20:26)
[2018-05-25 16:26] VITALS: BP 121/77
[2018-05-26 06:55] VITALS: BP 108/66
[2018-05-26 08:23] VITALS: BP 105/62
[2018-05-26] MEDS: CITALOPRAM HYDROBROMIDE 10 MG TABLET PO SCH (09:05)
[2018-05-26] MEDS: RisperiDONE 2 MG TABLET PO SCH ×2 (09:05→20:29)
[2018-05-26 16:14] VITALS: BP 114/65
[2018-05-27 01:22] VITALS: BP 120/76
[2018-05-27 08:00] VITALS: BP 135/89
[2018-05-27] MEDS: RisperiDONE 2 MG TABLET PO SCH ×2 (08:20→20:20)
[2018-05-27] MEDS: CITALOPRAM HYDROBROMIDE 10 MG TABLET PO SCH (08:21)
[2018-05-27 16:21] VITALS: BP 142/84
[2018-05-28 05:37] VITALS: BP 105/87
[2018-05-28] MEDS: RisperiDONE 2 MG TABLET PO SCH ×2 (08:03→20:32)
[2018-05-28] MEDS: CITALOPRAM HYDROBROMIDE 10 MG TABLET PO SCH (08:03)
[2018-05-28 08:23] VITALS: BP 120/82
[2018-05-28 16:04] VITALS: BP 125/77
[2018-05-29 02:23] VITALS: BP 121/74
[2018-05-29] MEDS: RisperiDONE 2 MG TABLET PO SCH (08:59)
[2018-05-29] MEDS: CITALOPRAM HYDROBROMIDE 10 MG TABLET PO SCH (08:59)
[2018-05-29 09:01] VITALS: BP 120/75
[2018-05-29] MEDS ORDERED: CITA10TA68 PO (11:46)
[2018-05-29] MEDS ORDERED: RISP2 PO (11:46)
== END 2018-05-29 13:45 | disposition home or self-care (01) | DRG 750 ==
LOC: B3A 05:24 → EDSTATUS 05:29 → B2S 05-24 12:23
DX: F25.1 Schizoaffective disorder, depressive type (principal); R45.851 Suicidal ideations; I10 Essential (primary) hypertension; D72.819 Decreased white blood cell count, unspecified; F10.10 Alcohol abuse, uncomplicated; J44.9 Chronic obstructive pulmonary disease, unspecified; K21.9 Gastro-esophageal reflux disease without esophagitis; F19.10 Other psychoactive substance abuse, uncomplicated; Z79.899 Other long term (current) drug therapy; Z91.5 Personal history of self-harm; Z71.51 Drug abuse counseling and surveillance of drug abuser
CPT/HCPCS: 83036; 84436; 84439; 84443

== ENCOUNTER 2018-08-13 15:45 | Inpatient (IN) | payer MEDICAID, OTHER ==
[~2018-08-13] VITALS: Ht 190.5 cm; Wt 95.0 kg
[~2018-08-13 15:45] MED LIST changes: -CHLO50 PO; +CITA10TA68 PO; +FOLI1 PO; +RISP2 PO; -SERT100T12 PO
[2018-08-13] MEDS ORDERED: HALOPERIDOL 5 MG TABLET PO ONE (17:30)
[2018-08-13] MEDS ORDERED: ZOLPIDEM TARTRATE 10 MG TABLET PO PRN (17:45)
[2018-08-13] MEDS ORDERED: HALOPERIDOL 5 MG TABLET PO PRN (17:45)
[2018-08-13] MEDS ORDERED: LORazepam 2 MG TABLET PO PRN (17:45)
[2018-08-13 17:52] LABS: BASOPHILS % (AUTO) 1.4 % (0.0-2.0); EOSINOPHILS % (AUTO) 2.6 % (1.0-6.0); HEMATOCRIT 41.2 % (41-53); LYMPHOCYTES % (AUTO) 39.6 % (22.0-44.0); MEAN CORPUSCULAR HEMOGLOBIN 26.2 pg (26.0-34.0); MEAN CORPUSCULAR HGB CONC 33.9 G/dL (31.0-37.0); MEAN CORPUSCULAR VOLUME 77 fL (80-100); MONOCYTES # (AUTO) 0.6 K/uL (0.1-1.0); MONOCYTES % (AUTO) 12.4 % (2.0-9.0); NEUTROPHILS # (AUTO) 2.2 K/uL (1.8-7.7); PLATELET COUNT (AUTO) 255 K/uL (150-450); RED BLOOD CELL COUNT(AUTO) 5.33 MIL/uL (4.50-5.90); RED CELL DISTRIBUTION WIDTH 16.5 % (11.5-14.5)
[2018-08-13 18:04] LABS: ANION GAP 6 mmol/L (8-16); CALCIUM, TOTAL 9.3 mg/dL (8.8-10.5); CARBON DIOXIDE 28 mmol/L (22-29); CHLORIDE 105 mmol/L (98-107); CREATININE 1.37 mg/dL (0.60-1.30); GLOMERULAR FILTR. RATE CALC > 60 mL/min (>60); GLUCOSE,RANDOM 104 mg/dL (70-110); POTASSIUM 3.9 mmol/L (3.5-5.1); SODIUM SERUM 139 mmol/L (136-145); UREA NITROGEN, BLOOD 15 mg/dL (7-18)
[2018-08-13 18:10] LABS: ALANINE AMINOTRANSFERASE 23 U/L (12-78); ALBUMIN 3.8 g/dL (3.4-5.0); ALKALINE PHOSPHATASE 119 U/L (46-116); ASPARTATE AMINOTRANSFERASE 18 U/L (15-37); BILIRUBIN,TOTAL 0.5 mg/dL (0.1-1.0); TOTAL PROTEIN, SERUM 7.4 g/dL (6.4-8.2)
[2018-08-13 18:20] LABS: AMPHET/METH SCREEN,URINE POSITIVE (NEGATIVE); BARBITURATE SCREEN, URINE NEGATIVE (NEGATIVE); BENZODIAZEPINES SCREEN,URINE NEGATIVE (NEGATIVE); CANNABINOID SCREEN,URINE NEGATIVE (NEGATIVE); COCAINE SCREEN,URINE NEGATIVE (NEGATIVE); METHADONE SCREEN, URINE NEGATIVE (NEGATIVE); OPIATE SCREEN,URINE NEGATIVE (NEGATIVE); PHENCYCLIDINE SCREEN,URINE NEGATIVE (NEGATIVE)
[2018-08-13] MEDS ORDERED: CloNIDine HCL 0.1 MG TABLET PO PRN (19:45)
[2018-08-13] MEDS ORDERED: ACETAMINOPHEN 325 MG TABLET PO PRN (19:45)
[2018-08-13] MEDS ORDERED: NICOTINE 14 MG/24 HOUR PATCH TD PRN (19:45)
[2018-08-13] MEDS ORDERED: LOPERAMIDE HCL 2 MG CAPSULE PO PRN (19:45)
[2018-08-13] MEDS ORDERED: -PHARMACY VACCINE NOTE- MISC ONE (19:45)
[2018-08-13] MEDS ORDERED: PETROLATUM,WHITE 71 GM JELLY TP PRN (19:45)
[2018-08-13] MEDS ORDERED: MAG HYDROX/AL HYDROX/SIMETH ES 30 ML SUSPENSION UDCUP PO PRN (19:45)
[2018-08-13] MEDS ORDERED: IBUPROFEN 400 MG TABLET PO PRN (19:45)
[2018-08-13] MEDS ORDERED: DOCUSATE SODIUM 100 MG CAPSULE PO PRN (19:45)
[2018-08-13] MEDS ORDERED: ALBUTEROL SULFATE HFA 90 MCG/PUFF 8 GM INHALER IH PRN (19:45)
[2018-08-13] MEDS ORDERED: MAGNESIUM HYDROXIDE SUSPENSION 30 ML UDCUP PO PRN (19:45)
[2018-08-13] MEDS ORDERED: GuaiFENesin/D-METHORPHAN [SUGAR-FREE] 200-20MG/10 ML SYRUP UDCUP PO PRN (19:45)
[2018-08-13] MEDS ORDERED: ONDANSETRON HCL 4 MG TABLET PO PRN (19:45)
[2018-08-13 19:54] VITALS: BP 145/93
[2018-08-14 08:12] VITALS: BP 113/81
[2018-08-14] MEDS: RisperiDONE 2 MG TABLET PO SCH ×2 (11:32→21:15)
[2018-08-14] MEDS: CITALOPRAM HYDROBROMIDE 10 MG TABLET PO SCH (11:48)
[2018-08-14 17:47] VITALS: BP 104/70
[2018-08-15 09:20] VITALS: BP 119/81
[2018-08-15] MEDS: RisperiDONE 2 MG TABLET PO SCH ×2 (10:52→20:42)
[2018-08-15] MEDS: CITALOPRAM HYDROBROMIDE 10 MG TABLET PO SCH (10:52)
[2018-08-15 19:36] VITALS: BP 101/67
[2018-08-16 09:06] VITALS: BP 122/79
[2018-08-16] MEDS: CITALOPRAM HYDROBROMIDE 10 MG TABLET PO SCH (09:56)
[2018-08-16] MEDS: RisperiDONE 2 MG TABLET PO SCH ×2 (09:56→21:26)
[2018-08-16 16:15] VITALS: BP 108/75
[2018-08-17 09:16] VITALS: BP 107/73
[2018-08-17] MEDS: CITALOPRAM HYDROBROMIDE 10 MG TABLET PO SCH (10:03)
[2018-08-17] MEDS: RisperiDONE 2 MG TABLET PO SCH ×2 (10:03→21:12)
[2018-08-17 16:47] VITALS: BP 131/66
[2018-08-18 03:04] LABS: AMPHET/METH SCREEN,URINE NEGATIVE (NEGATIVE); BARBITURATE SCREEN, URINE NEGATIVE (NEGATIVE); BENZODIAZEPINES SCREEN,URINE NEGATIVE (NEGATIVE); CANNABINOID SCREEN,URINE NEGATIVE (NEGATIVE); COCAINE SCREEN,URINE NEGATIVE (NEGATIVE); METHADONE SCREEN, URINE NEGATIVE (NEGATIVE); OPIATE SCREEN,URINE NEGATIVE (NEGATIVE)
[2018-08-18 03:05] LABS: PHENCYCLIDINE SCREEN,URINE NEGATIVE (NEGATIVE)
[2018-08-18 09:15] VITALS: BP 146/90
[2018-08-18] MEDS: CITALOPRAM HYDROBROMIDE 10 MG TABLET PO SCH (09:17)
[2018-08-18] MEDS: RisperiDONE 2 MG TABLET PO SCH ×2 (09:17→21:39)
[2018-08-18 18:48] VITALS: BP 115/64
[2018-08-19 08:00] VITALS: BP 113/70
[2018-08-19] MEDS: RisperiDONE 2 MG TABLET PO SCH ×2 (09:13→20:32)
[2018-08-19] MEDS: CITALOPRAM HYDROBROMIDE 10 MG TABLET PO SCH (09:13)
[2018-08-19 21:38] VITALS: BP 102/69
[2018-08-20] MEDS: CITALOPRAM HYDROBROMIDE 10 MG TABLET PO SCH (10:26)
[2018-08-20] MEDS: RisperiDONE 2 MG TABLET PO SCH ×2 (10:27→20:33)
[2018-08-20 10:38] VITALS: BP 109/81
[2018-08-20 19:01] VITALS: BP 113/79
[2018-08-21] MEDS: RisperiDONE 2 MG TABLET PO SCH ×2 (09:21→21:15)
[2018-08-21] MEDS: CITALOPRAM HYDROBROMIDE 10 MG TABLET PO SCH (09:21)
[2018-08-21 14:02] VITALS: BP 120/71
[2018-08-21 16:30] VITALS: BP 124/75
[2018-08-22 09:00] VITALS: BP 115/75
[2018-08-22] MEDS: RisperiDONE 2 MG TABLET PO SCH ×2 (09:03→20:31)
[2018-08-22] MEDS: CITALOPRAM HYDROBROMIDE 10 MG TABLET PO SCH (09:04)
[2018-08-22 16:30] VITALS: BP 118/72
[2018-08-23] MEDS: RisperiDONE 2 MG TABLET PO SCH ×2 (09:16→20:38)
[2018-08-23] MEDS: CITALOPRAM HYDROBROMIDE 10 MG TABLET PO SCH (09:17)
[2018-08-23 12:21] VITALS: BP 149/76
[2018-08-23 17:52] VITALS: BP 114/61
[2018-08-24 08:00] VITALS: BP 130/83
[2018-08-24] MEDS ORDERED: CITA10TA68 PO (09:43)
[2018-08-24] MEDS ORDERED: RISP2 PO (09:43)
[2018-08-24] MEDS: CITALOPRAM HYDROBROMIDE 10 MG TABLET PO SCH (10:03)
[2018-08-24] MEDS: RisperiDONE 2 MG TABLET PO SCH (10:03)
== END 2018-08-24 14:35 | disposition home or self-care (01) | DRG 750 ==
LOC: EMS 15:47 → 3EI 18:00
DX: F25.1 Schizoaffective disorder, depressive type (principal); R45.851 Suicidal ideations; Z59.0 Homelessness; F15.10 Other stimulant abuse, uncomplicated; F17.200 Nicotine dependence, unspecified, uncomplicated; F41.0 Panic disorder [episodic paroxysmal anxiety]; K21.9 Gastro-esophageal reflux disease without esophagitis; J44.9 Chronic obstructive pulmonary disease, unspecified; I10 Essential (primary) hypertension; F12.90 Cannabis use, unspecified, uncomplicated; F41.9 Anxiety disorder, unspecified; F19.10 Other psychoactive substance abuse, uncomplicated; M54.9 Dorsalgia, unspecified; Z79.899 Other long term (current) drug therapy; Z91.5 Personal history of self-harm; Z71.51 Drug abuse counseling and surveillance of drug abuser; Z71.6 Tobacco abuse counseling
CPT/HCPCS: 80307; G0480

== ENCOUNTER 2018-12-06 09:08 | Inpatient (IN) | payer MEDICAID ==
[~2018-12-06] VITALS: Ht 190.5 cm; Wt 100.2 kg
[~2018-12-06 09:08] MED LIST changes: -FOLI1 PO
[2018-12-06 10:15] VITALS: BP 162/99
[2018-12-06] MEDS ORDERED: ACETAMINOPHEN 325 MG TABLET PO PRN ×2 (10:15→12:00)
[2018-12-06] MEDS ORDERED: NICOTINE 14 MG/24 HOUR PATCH TD PRN ×2 (10:15→12:00)
[2018-12-06] MEDS ORDERED: LOPERAMIDE HCL 2 MG CAPSULE PO PRN ×2 (10:15→12:00)
[2018-12-06] MEDS ORDERED: PETROLATUM,WHITE 71 GM JELLY TP PRN ×2 (10:15→12:00)
[2018-12-06] MEDS ORDERED: MAG HYDROX/AL HYDROX/SIMETH ES 30 ML SUSPENSION UDCUP PO PRN ×2 (10:15→12:00)
[2018-12-06] MEDS ORDERED: ALBUTEROL SULFATE HFA 90 MCG/PUFF 8 GM INHALER IH PRN ×2 (10:15→12:00)
[2018-12-06] MEDS ORDERED: MAGNESIUM HYDROXIDE SUSPENSION 30 ML UDCUP PO PRN ×2 (10:15→12:00)
[2018-12-06] MEDS ORDERED: ONDANSETRON HCL 4 MG TABLET PO PRN ×2 (10:15→12:00)
[2018-12-06] MEDS ORDERED: GuaiFENesin/D-METHORPHAN [SUGAR-FREE] 200-20MG/10 ML SYRUP UDCUP PO PRN ×2 (10:15→12:00)
[2018-12-06] MEDS ORDERED: CloNIDine HCL 0.1 MG TABLET PO PRN ×2 (10:15→12:00)
[2018-12-06] MEDS ORDERED: IBUPROFEN 400 MG TABLET PO PRN ×2 (10:15→12:00)
[2018-12-06] MEDS ORDERED: DOCUSATE SODIUM 100 MG CAPSULE PO PRN ×2 (10:15→12:00)
[2018-12-06 11:06] VITALS: BP 157/103
[2018-12-06] MEDS ORDERED: CITA10TA68 PO (11:10)
[2018-12-06] MEDS ORDERED: RISP2 PO (11:10)
[2018-12-06] MEDS: LISINOPRIL 20 MG TABLET PO SCH (12:21)
[2018-12-06 13:00] VITALS: BP 140/99
[2018-12-06 16:00] VITALS: BP 132/85
[2018-12-06] MEDS: RisperiDONE 2 MG TABLET PO SCH (16:10)
[2018-12-07 04:27] VITALS: BP 136/89
[2018-12-07 07:58] LABS: EOSINOPHILS % (AUTO) 3.7 % (1.0-6.0); HEMATOCRIT 42.7 % (41-53); HEMOGLOBIN 14.4 g/dL (13.5-17.5); LYMPHOCYTES # (AUTO) 1.4 K/uL (1.0-4.8); LYMPHOCYTES % (AUTO) 20.8 % (22.0-44.0); MEAN CORPUSCULAR HEMOGLOBIN 27.3 pg (26.0-34.0); MEAN CORPUSCULAR HGB CONC 33.7 G/dL (31.0-37.0); MEAN CORPUSCULAR VOLUME 81 fL (80-100); MONOCYTES # (AUTO) 0.4 K/uL (0.1-1.0); MONOCYTES % (AUTO) 6.7 % (2.0-9.0); NEUTROPHILS # (AUTO) 4.4 K/uL (1.8-7.7); NEUTROPHILS % (AUTO) 67.8 % (40.0-70.0); PLATELET COUNT (AUTO) 300 K/uL (150-450); RED BLOOD CELL COUNT(AUTO) 5.27 MIL/uL (4.50-5.90); RED CELL DISTRIBUTION WIDTH 15.9 % (11.5-14.5)
[2018-12-07 08:40] LABS: ALANINE AMINOTRANSFERASE 21 U/L (12-78); ALBUMIN 3.5 g/dL (3.4-5.0); ALKALINE PHOSPHATASE 128 U/L (46-116); ANION GAP 6 mmol/L (8-16); ASPARTATE AMINOTRANSFERASE 17 U/L (15-37); BILIRUBIN,TOTAL 0.6 mg/dL (0.1-1.0); CARBON DIOXIDE 30 mmol/L (22-29); CHLORIDE 103 mmol/L (98-107); CHOL/HDL RATIO 2.3 (4.2-7.3); CHOLESTEROL 149 mg/dL (131-200); CREATININE 1.23 mg/dL (0.60-1.30); GLOMERULAR FILTR. RATE CALC > 60 mL/min (>60); GLUCOSE,RANDOM 92 mg/dL (70-110); HDL CHOLESTEROL 66 mg/dL (40-60); LDL CHOL (CALC.) 69 mg/dL (0-130); POTASSIUM 4.5 mmol/L (3.5-5.1); SODIUM SERUM 139 mmol/L (136-145); THYROID STIMULATING HORMONE 1.19 uIU/mL (0.36-3.74); TOTAL PROTEIN, SERUM 6.6 g/dL (6.4-8.2); TRIGLYCERIDES 71 mg/dL (15-150); UREA NITROGEN, BLOOD 15 mg/dL (7-18)
[2018-12-07] MEDS: LISINOPRIL 20 MG TABLET PO SCH (09:02)
[2018-12-07] MEDS: CITALOPRAM HYDROBROMIDE 20 MG TABLET PO SCH (09:03)
[2018-12-07] MEDS: RisperiDONE 2 MG TABLET PO SCH ×2 (09:03→16:35)
[2018-12-07 09:46] VITALS: BP 111/77
[2018-12-07 16:29] VITALS: BP 109/64
[2018-12-08 00:54] VITALS: BP 133/72
[2018-12-08 08:21] VITALS: BP 110/65
[2018-12-08] MEDS: RisperiDONE 2 MG TABLET PO SCH ×2 (08:32→16:48)
[2018-12-08] MEDS: CITALOPRAM HYDROBROMIDE 20 MG TABLET PO SCH (08:32)
[2018-12-08] MEDS: LISINOPRIL 20 MG TABLET PO SCH (08:32)
[2018-12-08 16:46] VITALS: BP 116/62
[2018-12-09 06:45] VITALS: BP 112/62
[2018-12-09 08:09] VITALS: BP 111/67
[2018-12-09] MEDS: RisperiDONE 2 MG TABLET PO SCH ×2 (08:27→16:56)
[2018-12-09] MEDS: CITALOPRAM HYDROBROMIDE 20 MG TABLET PO SCH (08:27)
[2018-12-09] MEDS: LISINOPRIL 20 MG TABLET PO SCH (08:27)
[2018-12-09 17:29] VITALS: BP 119/66
[2018-12-10 07:07] VITALS: BP 108/65
[2018-12-10 08:10] VITALS: BP 106/62
[2018-12-10] MEDS: CITALOPRAM HYDROBROMIDE 20 MG TABLET PO SCH (08:19)
[2018-12-10] MEDS: LISINOPRIL 20 MG TABLET PO SCH (08:19)
[2018-12-10] MEDS: RisperiDONE 2 MG TABLET PO SCH ×2 (08:19→16:45)
[2018-12-10 16:00] VITALS: BP 109/64
[2018-12-11 06:49] VITALS: BP 120/74
[2018-12-11 08:13] VITALS: BP 116/68
[2018-12-11] MEDS: RisperiDONE 2 MG TABLET PO SCH ×2 (08:24→16:56)
[2018-12-11] MEDS: CITALOPRAM HYDROBROMIDE 20 MG TABLET PO SCH (08:24)
[2018-12-11] MEDS: LISINOPRIL 20 MG TABLET PO SCH (08:24)
[2018-12-11 16:00] VITALS: BP 104/65
[2018-12-12 07:02] VITALS: BP 114/72
[2018-12-12 08:08] VITALS: BP 122/81
[2018-12-12] MEDS: RisperiDONE 2 MG TABLET PO SCH ×2 (09:02→17:39)
[2018-12-12] MEDS: LISINOPRIL 20 MG TABLET PO SCH (09:02)
[2018-12-12] MEDS: CITALOPRAM HYDROBROMIDE 20 MG TABLET PO SCH (09:02)
[2018-12-12 16:16] VITALS: BP 108/64
[2018-12-12] MEDS ORDERED: CITA-106 PO (17:07)
[2018-12-13 01:05] VITALS: BP 110/68
[2018-12-13 08:57] VITALS: BP 116/60
[2018-12-13] MEDS ORDERED: LISI-662 PO (09:16)
[2018-12-13] MEDS: RisperiDONE 2 MG TABLET PO SCH (10:14)
[2018-12-13] MEDS: CITALOPRAM HYDROBROMIDE 20 MG TABLET PO SCH (10:15)
[2018-12-13] MEDS: LISINOPRIL 20 MG TABLET PO SCH (10:15)
== END 2018-12-13 13:00 | disposition home or self-care (01) | DRG 750 ==
LOC: B3A 10:17 → B2S 12-12 09:47
PROVIDERS: ADMIT Psychiatry & Neurology Psychiatry; ATTEND Psychiatry & Neurology Psychiatry
DX: F25.0 Schizoaffective disorder, bipolar type (principal); Z59.0 Homelessness; F19.90 Other psychoactive substance use, unspecified, uncomplicated; F41.9 Anxiety disorder, unspecified; I10 Essential (primary) hypertension; J44.9 Chronic obstructive pulmonary disease, unspecified; K21.9 Gastro-esophageal reflux disease without esophagitis; R45.87 Impulsiveness; Z28.21 Immunization not carried out because of patient refusal; Z91.5 Personal history of self-harm
CPT/HCPCS: 83036; 84443

== ENCOUNTER 2019-03-15 08:50 | Emergency (ER) | payer MEDICAID, OTHER ==
[~2019-03-15] VITALS: Ht 188 cm; Wt 92.0 kg
[~2019-03-15 08:50] MED LIST changes: +CITA-106 PO; -CITA10TA68 PO; +LISI-662 PO
[2019-03-15 10:09] VITALS: BP 151/97
== END 2019-03-15 10:11 | disposition home or self-care (01) ==
LOC: EMS 08:52
DX: F10.10 Alcohol abuse, uncomplicated (principal); F17.210 Nicotine dependence, cigarettes, uncomplicated; J44.9 Chronic obstructive pulmonary disease, unspecified; K21.9 Gastro-esophageal reflux disease without esophagitis; I10 Essential (primary) hypertension; F20.9 Schizophrenia, unspecified; F12.90 Cannabis use, unspecified, uncomplicated; F19.90 Other psychoactive substance use, unspecified, uncomplicated
CPT/HCPCS: 99406

== ENCOUNTER 2019-05-26 09:28 | Emergency (ER) | payer OTHER ==
[~2019-05-26] VITALS: Ht 188 cm; Wt 92.0 kg
[2019-05-26 10:00] VITALS: BP 137/75
== END 2019-05-26 10:18 | disposition home or self-care (01) ==
LOC: EMS 09:29
DX: F15.20 Other stimulant dependence, uncomplicated (principal); J44.9 Chronic obstructive pulmonary disease, unspecified; K21.9 Gastro-esophageal reflux disease without esophagitis; I10 Essential (primary) hypertension; F20.9 Schizophrenia, unspecified; F17.210 Nicotine dependence, cigarettes, uncomplicated; F12.90 Cannabis use, unspecified, uncomplicated; F15.90 Other stimulant use, unspecified, uncomplicated

== ENCOUNTER 2019-05-26 12:30 | Inpatient (IN) | payer MEDICAID, OTHER ==
[~2019-05-26] VITALS: Ht 193 cm; Wt 97.6 kg
[2019-05-26] MEDS ORDERED: HALOPERIDOL 5 MG TABLET PO ONE (13:00)
[2019-05-26] MEDS ORDERED: LORazepam 2 MG TABLET PO ONE (13:00)
[2019-05-26 13:04] LABS: BASOPHILS % (AUTO) 1.4 % (0.0-2.0); EOSINOPHILS % (AUTO) 0.6 % (1.0-6.0); HEMATOCRIT 48.9 % (41-53); HEMOGLOBIN 15.8 g/dL (13.5-17.5); LYMPHOCYTES # (AUTO) 1.5 K/uL (1.0-4.8); LYMPHOCYTES % (AUTO) 31.8 % (22.0-44.0); MEAN CORPUSCULAR HEMOGLOBIN 26.5 pg (26.0-34.0); MEAN CORPUSCULAR HGB CONC 32.3 G/dL (31.0-37.0); MEAN CORPUSCULAR VOLUME 82 fL (80-100); MONOCYTES # (AUTO) 0.5 K/uL (0.1-1.0); MONOCYTES % (AUTO) 9.7 % (2.0-9.0); NEUTROPHILS # (AUTO) 2.8 K/uL (1.8-7.7); NEUTROPHILS % (AUTO) 56.5 % (40.0-70.0); PLATELET COUNT (AUTO) 333 K/uL (150-450); RED BLOOD CELL COUNT(AUTO) 5.95 MIL/uL (4.50-5.90); RED CELL DISTRIBUTION WIDTH 15.5 % (11.5-14.5)
[2019-05-26 13:12] LABS: ANION GAP 12 mmol/L (8-16); CALCIUM, TOTAL 9.7 mg/dL (8.8-10.5); CARBON DIOXIDE 22 mmol/L (22-29); CHLORIDE 104 mmol/L (98-107); GLOMERULAR FILTR. RATE CALC 59 mL/min (>60); GLUCOSE,RANDOM 120 mg/dL (70-110); POTASSIUM 4.1 mmol/L (3.5-5.1); SODIUM SERUM 138 mmol/L (136-145); UREA NITROGEN, BLOOD 12 mg/dL (7-18)
[2019-05-26 13:20] LABS: ALANINE AMINOTRANSFERASE 30 U/L (12-78); ALBUMIN 4.1 g/dL (3.4-5.0); ALKALINE PHOSPHATASE 119 U/L (46-116); ASPARTATE AMINOTRANSFERASE 24 U/L (15-37); BILIRUBIN,TOTAL 1.1 mg/dL (0.1-1.0); TOTAL PROTEIN, SERUM 7.8 g/dL (6.4-8.2)
[2019-05-26] MEDS ORDERED: HALOPERIDOL 5 MG TABLET PO PRN (14:15)
[2019-05-26] MEDS ORDERED: LORazepam 2 MG TABLET PO PRN (14:15)
[2019-05-26] MEDS ORDERED: ZOLPIDEM TARTRATE 10 MG TABLET PO PRN (14:15)
[2019-05-26 16:03] VITALS: BP 158/95
[2019-05-26 16:20] LABS: APPEARANCE,URINE CLEAR (CLEAR); BILIRUBIN,URINE NEGATIVE (NEGATIVE); GLUCOSE, URINE (UA) NEGATIVE (NEGATIVE); KETONES,URINE 15 mg/dL (NEGATIVE); LEUKOCYTE ESTERASE ,URINE NEGATIVE (NEGATIVE); NITRATE,URINE NEGATIVE (NEGATIVE); OCCULT BLOOD,URINE TRACE (NEGATIVE); PH,URINE 5.5 (5.0-8.0); PROTEIN,URINE NEGATIVE (NEGATIVE); UROBILINOGEN,URINE 0.2 mg/dL (<=1.0)
[2019-05-26 16:25] LABS: AMPHET/METH SCREEN,URINE POSITIVE (NEGATIVE); BARBITURATE SCREEN, URINE NEGATIVE (NEGATIVE); BENZODIAZEPINES SCREEN,URINE NEGATIVE (NEGATIVE); CANNABINOID SCREEN,URINE NEGATIVE (NEGATIVE); COCAINE SCREEN,URINE NEGATIVE (NEGATIVE); METHADONE SCREEN, URINE NEGATIVE (NEGATIVE); OPIATE SCREEN,URINE NEGATIVE (NEGATIVE)
[2019-05-26 16:26] LABS: PHENCYCLIDINE SCREEN,URINE NEGATIVE (NEGATIVE)
[2019-05-26] MEDS ORDERED: ONDANSETRON HCL 4 MG TABLET PO PRN (16:30)
[2019-05-26] MEDS ORDERED: CloNIDine HCL 0.1 MG TABLET PO PRN (16:30)
[2019-05-26] MEDS ORDERED: NICOTINE 14 MG/24 HOUR PATCH TD PRN (16:30)
[2019-05-26] MEDS ORDERED: IBUPROFEN 400 MG TABLET PO PRN (16:30)
[2019-05-26] MEDS ORDERED: LOPERAMIDE HCL 2 MG CAPSULE PO PRN (16:30)
[2019-05-26] MEDS ORDERED: MAGNESIUM HYDROXIDE SUSPENSION 30 ML UDCUP PO PRN (16:30)
[2019-05-26] MEDS ORDERED: MAG HYDROX/AL HYDROX/SIMETH ES 30 ML SUSPENSION UDCUP PO PRN (16:30)
[2019-05-26] MEDS ORDERED: PETROLATUM,WHITE 28 GM JELLY TP PRN (16:30)
[2019-05-26] MEDS ORDERED: ALBUTEROL SULFATE HFA 90 MCG/PUFF 8 GM INHALER IH PRN (16:30)
[2019-05-26] MEDS ORDERED: DOCUSATE SODIUM 100 MG CAPSULE PO PRN (16:30)
[2019-05-26] MEDS ORDERED: GuaiFENesin/D-METHORPHAN [SUGAR-FREE] 200-20MG/10 ML SYRUP UDCUP PO PRN (16:30)
[2019-05-26] MEDS ORDERED: ACETAMINOPHEN 325 MG TABLET PO PRN (16:30)
[2019-05-26 16:35] LABS: BACTERIA,URINE None Seen /HPF (None Seen); RBC,URINE 0-2 /HPF (0-2)
[2019-05-26 16:36] LABS: SQUAMOUS EPITHELIAL CELL,UR Rare /LPF (None Seen)
[2019-05-26 16:55] VITALS: BP 123/60
[2019-05-27 06:48] VITALS: BP 118/92
[2019-05-27 08:13] LABS: BASOPHILS % (AUTO) 1.8 % (0.0-2.0); HEMATOCRIT 45.9 % (41-53); HEMOGLOBIN 14.9 g/dL (13.5-17.5); LYMPHOCYTES # (AUTO) 1.5 K/uL (1.0-4.8); LYMPHOCYTES % (AUTO) 40.5 % (22.0-44.0); MEAN CORPUSCULAR HEMOGLOBIN 27.1 pg (26.0-34.0); MEAN CORPUSCULAR HGB CONC 32.5 G/dL (31.0-37.0); MEAN CORPUSCULAR VOLUME 83 fL (80-100); MONOCYTES # (AUTO) 0.3 K/uL (0.1-1.0); MONOCYTES % (AUTO) 8.5 % (2.0-9.0); NEUTROPHILS # (AUTO) 1.7 K/uL (1.8-7.7); NEUTROPHILS % (AUTO) 45.2 % (40.0-70.0); PLATELET COUNT (AUTO) 284 K/uL (150-450); RED BLOOD CELL COUNT(AUTO) 5.51 MIL/uL (4.50-5.90); RED CELL DISTRIBUTION WIDTH 15.4 % (11.5-14.5)
[2019-05-27 08:26] LABS: HEMOGLOBIN A1C 6.4 % (4.5-6.2)
[2019-05-27 08:46] LABS: ALANINE AMINOTRANSFERASE 24 U/L (12-78); ALBUMIN 3.3 g/dL (3.4-5.0); ALKALINE PHOSPHATASE 100 U/L (46-116); ANION GAP 12 mmol/L (8-16); ASPARTATE AMINOTRANSFERASE 15 U/L (15-37); BILIRUBIN,TOTAL 0.8 mg/dL (0.1-1.0); CARBON DIOXIDE 23 mmol/L (22-29); CHLORIDE 104 mmol/L (98-107); CHOL/HDL RATIO 2.3 (4.2-7.3); CHOLESTEROL 146 mg/dL (131-200); CREATININE 1.31 mg/dL (0.60-1.30); FREE T4 (FREE THYROXINE) 1.17 ng/dL (0.76-1.46); GLOMERULAR FILTR. RATE CALC > 60 mL/min (>60); GLUCOSE,RANDOM 136 mg/dL (70-110); HDL CHOLESTEROL 64 mg/dL (40-60); LDL CHOL (CALC.) 73 mg/dL (0-130); POTASSIUM 4.1 mmol/L (3.5-5.1); SODIUM SERUM 139 mmol/L (136-145); TOTAL PROTEIN, SERUM 6.3 g/dL (6.4-8.2); TRIGLYCERIDES 47 mg/dL (15-150); UREA NITROGEN, BLOOD 14 mg/dL (7-18)
[2019-05-27 08:57] LABS: PLATELET MORPHOLOGY COMMENT LARGE PLTS PRESENT
[2019-05-27 09:15] VITALS: BP 137/62
[2019-05-27] MEDS: RisperiDONE 2 MG TABLET PO SCH ×2 (11:00→16:48)
[2019-05-27] MEDS: CITALOPRAM HYDROBROMIDE 20 MG TABLET PO SCH (11:00)
[2019-05-27 19:07] VITALS: BP 117/79
[2019-05-28 05:05] VITALS: BP 128/69
[2019-05-28] MEDS: RisperiDONE 2 MG TABLET PO SCH ×2 (08:00→08:48)
[2019-05-28] MEDS: CITALOPRAM HYDROBROMIDE 20 MG TABLET PO SCH ×2 (08:00→08:48)
[2019-05-28 09:23] VITALS: BP 111/74
[2019-05-28 16:00] VITALS: BP 106/72
[2019-05-28] MEDS ORDERED: QUEtiapine FUMARATE 200 MG TABLET PO SCH (21:00)
[2019-05-29 06:48] VITALS: BP 114/75
[2019-05-29 08:52] VITALS: BP 142/88
[2019-05-29 08:54] VITALS: BP 142/88
[2019-05-29] MEDS ORDERED: QUET200T5 PO (10:02)
[2019-05-29] MEDS ORDERED: QUET200T29 PO (10:43)
== END 2019-05-29 11:25 | disposition home or self-care (01) | DRG 750 ==
LOC: EMS 12:31 → B3A 14:47
PROVIDERS: ADMIT Psychiatry & Neurology Child & Adolescent Psychiatry; ATTEND Psychiatry & Neurology Child & Adolescent Psychiatry
DX: F25.1 Schizoaffective disorder, depressive type (principal); F15.20 Other stimulant dependence, uncomplicated; R45.851 Suicidal ideations; F10.10 Alcohol abuse, uncomplicated; F17.210 Nicotine dependence, cigarettes, uncomplicated; I10 Essential (primary) hypertension; J44.9 Chronic obstructive pulmonary disease, unspecified; K21.9 Gastro-esophageal reflux disease without esophagitis; R73.03 Prediabetes; F12.10 Cannabis abuse, uncomplicated; D72.819 Decreased white blood cell count, unspecified; F41.9 Anxiety disorder, unspecified; Z71.51 Drug abuse counseling and surveillance of drug abuser; Z59.0 Homelessness; Z71.41 Alcohol abuse counseling and surveillance of alcoholic; Z79.899 Other long term (current) drug therapy; Z71.6 Tobacco abuse counseling
CPT/HCPCS: 83036; 84439; 84443; G0480

== ENCOUNTER 2019-11-01 17:29 | Inpatient (IN) | payer MEDICAID, OTHER ==
[~2019-11-01] VITALS: Ht 190.5 cm; Wt 105.0 kg
[~2019-11-01 17:29] MED LIST changes: -CITA-106 PO; -LISI-662 PO; +QUET200T PO; -RISP2 PO
[2019-11-01] MEDS ORDERED: LORazepam 2 MG/ML VIAL IM ONE (19:30)
[2019-11-01] MEDS ORDERED: DiphenhydrAMINE HCL 50 MG/ML VIAL IM ONE (19:30)
[2019-11-01] MEDS ORDERED: HALOPERIDOL LACTATE 5 MG/ML VIAL IM ONE (19:30)
[2019-11-01] MEDS ORDERED: LORazepam 2 MG TABLET PO ONE (20:00)
[2019-11-01] MEDS ORDERED: DiphenhydrAMINE HCL 25 MG CAPSULE PO ONE (20:00)
[2019-11-01] MEDS ORDERED: HALOPERIDOL 5 MG TABLET PO ONE (20:00)
[2019-11-01] MEDS ORDERED: LORazepam 2 MG TABLET PO PRN (20:30)
[2019-11-01] MEDS ORDERED: HALOPERIDOL 5 MG TABLET PO PRN (20:30)
[2019-11-01] MEDS ORDERED: ZOLPIDEM TARTRATE 10 MG TABLET PO PRN (20:30)
[2019-11-01 23:08] VITALS: BP 129/89
[2019-11-02] MEDS ORDERED: INFLUENZA VIRUS VACCINE QVS 2019-20 (3YR+)/PF 60 MCG/0.5 ML SYRINGE IM ONE (00:30)
[2019-11-02 02:16] VITALS: BP 141/97
[2019-11-02 16:05] VITALS: BP 135/62
[2019-11-02] MEDS ORDERED: RisperiDONE 2 MG TABLET PO SCH (17:00)
[2019-11-02] MEDS: QUEtiapine FUMARATE 200 MG TABLET PO SCH (20:45)
[2019-11-02] MEDS ORDERED: MAG HYDROX/AL HYDROX/SIMETH ES 30 ML SUSPENSION UDCUP PO PRN (22:30)
[2019-11-02] MEDS ORDERED: ONDANSETRON HCL 4 MG TABLET PO PRN (22:30)
[2019-11-02] MEDS ORDERED: MAGNESIUM HYDROXIDE SUSPENSION 30 ML UDCUP PO PRN (22:30)
[2019-11-02] MEDS ORDERED: BENZOCAINE/MENTHOL LOZENGE MM PRN (22:30)
[2019-11-02] MEDS ORDERED: LOPERAMIDE HCL 2 MG CAPSULE PO PRN (22:30)
[2019-11-02] MEDS ORDERED: BACITRACIN 28.4 GM OINTMENT TP PRN (22:30)
[2019-11-02] MEDS ORDERED: OMEPRAZOLE 20 MG CAPSULE PO PRN (22:30)
[2019-11-02] MEDS ORDERED: IBUPROFEN 600 MG TABLET PO PRN (22:30)
[2019-11-02] MEDS ORDERED: PETROLATUM,WHITE 28 GM JELLY TP PRN (22:30)
[2019-11-02] MEDS ORDERED: ACETAMINOPHEN 325 MG TABLET PO PRN (22:30)
[2019-11-02] MEDS ORDERED: CloNIDine HCL 0.1 MG TABLET PO PRN (22:30)
[2019-11-02] MEDS ORDERED: ALBUTEROL SULFATE HFA 90 MCG/PUFF 8 GM INHALER IH PRN (22:30)
[2019-11-02] MEDS ORDERED: DOCUSATE SODIUM 100 MG CAPSULE PO PRN (22:30)
[2019-11-03 05:11] VITALS: BP 131/81
[2019-11-03 08:00] VITALS: BP 107/56
[2019-11-03 08:02] LABS: CHOL/HDL RATIO 2.1 (4.2-7.3)
[2019-11-03] MEDS: CITALOPRAM HYDROBROMIDE 20 MG TABLET PO SCH ×2 (08:10→09:00)
[2019-11-03 16:05] VITALS: BP 127/74
[2019-11-03] MEDS: QUEtiapine FUMARATE 200 MG TABLET PO SCH (20:17)
[2019-11-04 00:54] VITALS: BP 141/97
[2019-11-04 08:11] VITALS: BP 133/84
[2019-11-04] MEDS: CITALOPRAM HYDROBROMIDE 20 MG TABLET PO SCH (09:00)
[2019-11-04 16:00] VITALS: BP 140/90
[2019-11-04] MEDS ORDERED: CITA-106 PO ×2 (20:07→20:21)
[2019-11-04] MEDS ORDERED: QUET200T PO (20:21)
== END 2019-11-04 22:04 | disposition home or self-care (01) | DRG 750 ==
LOC: EMS 17:31 → B3A 21:00
PROVIDERS: ADMIT Psychiatry & Neurology Psychiatry; ATTEND Psychiatry & Neurology Psychiatry
DX: F20.9 Schizophrenia, unspecified (principal); R45.851 Suicidal ideations; F15.90 Other stimulant use, unspecified, uncomplicated; F17.210 Nicotine dependence, cigarettes, uncomplicated; I10 Essential (primary) hypertension; J44.9 Chronic obstructive pulmonary disease, unspecified; F41.9 Anxiety disorder, unspecified; G47.00 Insomnia, unspecified; K21.9 Gastro-esophageal reflux disease without esophagitis; K59.00 Constipation, unspecified
CPT/HCPCS: 87081; J1200; J1630; J2060

== ENCOUNTER 2020-01-29 08:40 | Inpatient (IN) | payer MEDICAID ==
[~2020-01-29] VITALS: Ht 190.5 cm; Wt 106.7 kg
[~2020-01-29 08:40] MED LIST changes: +CITA-106 PO
[2020-01-29] MEDS ORDERED: ZOLPIDEM TARTRATE 10 MG TABLET PO PRN (09:30)
[2020-01-29] MEDS ORDERED: LORazepam 1 MG TABLET PO PRN (09:30)
[2020-01-29] MEDS ORDERED: HALOPERIDOL 5 MG TABLET PO PRN (09:30)
[2020-01-29 16:07] VITALS: BP 115/72
[2020-01-29] MEDS: RisperiDONE 1 MG TABLET PO SCH ×3 (16:50→17:14)
[2020-01-29] MEDS: BACITRACIN 28.4 GM OINTMENT TP SCH (16:51)
[2020-01-29] MEDS: CITALOPRAM HYDROBROMIDE 20 MG TABLET PO SCH (16:51)
[2020-01-29] MEDS ORDERED: IBUPROFEN 400 MG TABLET PO PRN (20:45)
[2020-01-29] MEDS ORDERED: NICOTINE 14 MG/24 HOUR PATCH TD PRN (20:45)
[2020-01-29] MEDS ORDERED: PETROLATUM,WHITE 28 GM JELLY TP PRN (20:45)
[2020-01-29] MEDS ORDERED: GuaiFENesin/D-METHORPHAN [SUGAR-FREE] 200-20MG/10 ML SYRUP UDCUP PO PRN (20:45)
[2020-01-29] MEDS ORDERED: MAGNESIUM HYDROXIDE SUSPENSION 30 ML UDCUP PO PRN (20:45)
[2020-01-29] MEDS ORDERED: CloNIDine HCL 0.1 MG TABLET PO PRN (20:45)
[2020-01-29] MEDS ORDERED: DOCUSATE SODIUM 100 MG CAPSULE PO PRN (20:45)
[2020-01-29] MEDS ORDERED: ONDANSETRON HCL 4 MG TABLET PO PRN (20:45)
[2020-01-29] MEDS ORDERED: LOPERAMIDE HCL 2 MG CAPSULE PO PRN (20:45)
[2020-01-29] MEDS ORDERED: ACETAMINOPHEN 325 MG TABLET PO PRN (20:45)
[2020-01-29] MEDS ORDERED: ALBUTEROL SULFATE HFA 90 MCG/PUFF 8 GM INHALER IH PRN (20:45)
[2020-01-29] MEDS ORDERED: MAG HYDROX/AL HYDROX/SIMETH ES 30 ML SUSPENSION UDCUP PO PRN (20:45)
[2020-01-30 00:39] VITALS: BP 131/68
[2020-01-30 08:31] VITALS: BP 121/73
[2020-01-30] MEDS: CITALOPRAM HYDROBROMIDE 20 MG TABLET PO SCH (08:44)
[2020-01-30] MEDS: RisperiDONE 1 MG TABLET PO SCH ×2 (08:44→16:17)
[2020-01-30] MEDS: BACITRACIN 28.4 GM OINTMENT TP SCH ×2 (08:45→16:17)
[2020-01-30 16:09] VITALS: BP 117/64
[2020-01-31 02:05] VITALS: BP 128/79
[2020-01-31 07:22] LABS: BASOPHILS % (AUTO) 1.3 % (0.0-2.0); EOSINOPHILS % (AUTO) 6.6 % (1.0-6.0); HEMOGLOBIN 13.7 g/dL (13.5-17.5); LYMPHOCYTES # (AUTO) 1.5 K/uL (1.0-4.8); LYMPHOCYTES % (AUTO) 38.6 % (22.0-44.0); MEAN CORPUSCULAR HEMOGLOBIN 26.2 pg (26.0-34.0); MEAN CORPUSCULAR HGB CONC 32.6 G/dL (31.0-37.0); MEAN CORPUSCULAR VOLUME 81 fL (80-100); MONOCYTES # (AUTO) 0.3 K/uL (0.1-1.0); MONOCYTES % (AUTO) 7.7 % (2.0-9.0); NEUTROPHILS # (AUTO) 1.8 K/uL (1.8-7.7); NEUTROPHILS % (AUTO) 45.8 % (40.0-70.0); PLATELET COUNT (AUTO) 346 K/uL (150-450); RED BLOOD CELL COUNT(AUTO) 5.22 MIL/uL (4.50-5.90); RED CELL DISTRIBUTION WIDTH 16.2 % (11.5-14.5)
[2020-01-31 07:58] LABS: HEMOGLOBIN A1C 6.1 % (3.8-5.6)
[2020-01-31 08:04] LABS: ALANINE AMINOTRANSFERASE 31 U/L (12-78); ALBUMIN 3.3 g/dL (3.4-5.0); ALKALINE PHOSPHATASE 125 U/L (46-116); ANION GAP 7 mmol/L (8-16); ASPARTATE AMINOTRANSFERASE 9 U/L (15-37); BILIRUBIN,TOTAL 0.4 mg/dL (0.1-1.0); CALCIUM, TOTAL 8.9 mg/dL (8.8-10.5); CARBON DIOXIDE 27 mmol/L (22-29); CHLORIDE 106 mmol/L (98-107); CHOL/HDL RATIO 3.2 (4.2-7.3); CHOLESTEROL 171 mg/dL (131-200); CREATININE 1.13 mg/dL (0.60-1.30); FREE T4 (FREE THYROXINE) 0.98 ng/dL (0.76-1.46); GLOMERULAR FILTR. RATE CALC > 60 mL/min (>60); GLUCOSE,RANDOM 97 mg/dL (70-110); HDL CHOLESTEROL 54 mg/dL (40-60); LDL CHOL (CALC.) 94 mg/dL (0-130); POTASSIUM 4.5 mmol/L (3.5-5.1); SODIUM SERUM 140 mmol/L (136-145); TOTAL PROTEIN, SERUM 5.9 g/dL (6.4-8.2); TRIGLYCERIDES 113 mg/dL (15-150); UREA NITROGEN, BLOOD 15 mg/dL (7-18)
[2020-01-31 08:10] VITALS: BP 122/85
[2020-01-31] MEDS: BACITRACIN 28.4 GM OINTMENT TP SCH ×2 (09:00→16:47)
[2020-01-31] MEDS: CITALOPRAM HYDROBROMIDE 20 MG TABLET PO SCH (09:02)
[2020-01-31] MEDS: RisperiDONE 1 MG TABLET PO SCH ×2 (09:03→16:47)
[2020-01-31 16:00] VITALS: BP 139/83
[2020-02-01 00:39] VITALS: BP 141/98
[2020-02-01 08:21] VITALS: BP 128/63
[2020-02-01] MEDS: BACITRACIN 28.4 GM OINTMENT TP SCH ×2 (09:00→16:36)
[2020-02-01] MEDS: RisperiDONE 1 MG TABLET PO SCH ×2 (09:13→16:36)
[2020-02-01] MEDS: CITALOPRAM HYDROBROMIDE 20 MG TABLET PO SCH (09:13)
[2020-02-01 16:00] VITALS: BP 115/66
[2020-02-02 05:41] VITALS: BP 131/89
[2020-02-02] MEDS: RisperiDONE 1 MG TABLET PO SCH (08:40)
[2020-02-02] MEDS: CITALOPRAM HYDROBROMIDE 20 MG TABLET PO SCH (08:40)
[2020-02-02] MEDS: BACITRACIN 28.4 GM OINTMENT TP SCH (09:00)
[2020-02-02 09:58] VITALS: BP 139/79
[2020-02-02] MEDS ORDERED: RISP1 PO (11:55)
== END 2020-02-02 12:30 | disposition home or self-care (01) | DRG 750 ==
LOC: B3A 09:30
PROVIDERS: ADMIT Psychiatry & Neurology Child & Adolescent Psychiatry; ATTEND Psychiatry & Neurology Child & Adolescent Psychiatry
DX: F25.0 Schizoaffective disorder, bipolar type (principal); F14.20 Cocaine dependence, uncomplicated; F15.20 Other stimulant dependence, uncomplicated; F17.200 Nicotine dependence, unspecified, uncomplicated; F32.9 Major depressive disorder, single episode, unspecified; I10 Essential (primary) hypertension; J44.9 Chronic obstructive pulmonary disease, unspecified; F41.9 Anxiety disorder, unspecified; Z79.899 Other long term (current) drug therapy; Z71.51 Drug abuse counseling and surveillance of drug abuser; Z71.6 Tobacco abuse counseling
CPT/HCPCS: 83036; 84436; 84439; 84443; G0480

== ENCOUNTER 2020-02-07 14:52 | Emergency (ER) | payer MEDICAID, OTHER ==
[~2020-02-07] VITALS: Ht 188 cm; Wt 100.0 kg
[~2020-02-07 14:52] MED LIST changes: -QUET200T PO; +RISP1 PO
[2020-02-07 15:48] VITALS: BP 151/88
[2020-02-07 16:05] LABS: BASOPHILS % (AUTO) 0.9 % (0.0-2.0); EOSINOPHILS % (AUTO) 0.2 % (1.0-6.0); HEMATOCRIT 40.9 % (41-53); HEMOGLOBIN 13.8 g/dL (13.5-17.5); LYMPHOCYTES # (AUTO) 1.1 K/uL (1.0-4.8); LYMPHOCYTES % (AUTO) 19.4 % (22.0-44.0); MEAN CORPUSCULAR HEMOGLOBIN 26.7 pg (26.0-34.0); MEAN CORPUSCULAR HGB CONC 33.8 G/dL (31.0-37.0); MEAN CORPUSCULAR VOLUME 79 fL (80-100); MONOCYTES # (AUTO) 0.5 K/uL (0.1-1.0); MONOCYTES % (AUTO) 9.2 % (2.0-9.0); NEUTROPHILS # (AUTO) 3.9 K/uL (1.8-7.7); NEUTROPHILS % (AUTO) 70.3 % (40.0-70.0); PLATELET COUNT (AUTO) 259 K/uL (150-450); RED BLOOD CELL COUNT(AUTO) 5.17 MIL/uL (4.50-5.90); RED CELL DISTRIBUTION WIDTH 15.7 % (11.5-14.5)
[2020-02-07 16:21] LABS: ANION GAP 12 mmol/L (8-16); CALCIUM, TOTAL 9.3 mg/dL (8.8-10.5); CARBON DIOXIDE 25 mmol/L (22-29); CHLORIDE 103 mmol/L (98-107); CREATININE 1.14 mg/dL (0.60-1.30); GLOMERULAR FILTR. RATE CALC > 60 mL/min (>60); GLUCOSE,RANDOM 128 mg/dL (70-110); POTASSIUM 3.7 mmol/L (3.5-5.1); SODIUM SERUM 140 mmol/L (136-145); UREA NITROGEN, BLOOD 11 mg/dL (7-18)
[2020-02-07 16:23] LABS: AMPHET/METH SCREEN,URINE POSITIVE (NEGATIVE); BARBITURATE SCREEN, URINE NEGATIVE (NEGATIVE); BENZODIAZEPINES SCREEN,URINE NEGATIVE (NEGATIVE); CANNABINOID SCREEN,URINE NEGATIVE (NEGATIVE); COCAINE SCREEN,URINE NEGATIVE (NEGATIVE); METHADONE SCREEN, URINE NEGATIVE (NEGATIVE); OPIATE SCREEN,URINE NEGATIVE (NEGATIVE)
[2020-02-07 16:24] LABS: PHENCYCLIDINE SCREEN,URINE POSITIVE (NEGATIVE)
[2020-02-07 16:27] LABS: ALANINE AMINOTRANSFERASE 28 U/L (12-78); ALBUMIN 4.1 g/dL (3.4-5.0); ALKALINE PHOSPHATASE 144 U/L (46-116); ASPARTATE AMINOTRANSFERASE 23 U/L (15-37); BILIRUBIN,TOTAL 0.8 mg/dL (0.1-1.0); TOTAL PROTEIN, SERUM 7.4 g/dL (6.4-8.2)
[2020-02-07] MEDS ORDERED: HALOPERIDOL 5 MG TABLET PO ONE (20:30)
[2020-02-07] MEDS ORDERED: LORazepam 1 MG TABLET PO ONE (20:30)
== END 2020-02-07 20:43 | disposition home or self-care (01) ==
LOC: EMS 14:55
DX: F25.9 Schizoaffective disorder, unspecified (principal); F32.9 Major depressive disorder, single episode, unspecified; F15.10 Other stimulant abuse, uncomplicated; J44.9 Chronic obstructive pulmonary disease, unspecified; K21.9 Gastro-esophageal reflux disease without esophagitis; I10 Essential (primary) hypertension; F17.210 Nicotine dependence, cigarettes, uncomplicated; F12.90 Cannabis use, unspecified, uncomplicated
CPT/HCPCS: 36415; 80053; 80307; 85025; 99285; G0480

== ENCOUNTER 2020-02-07 20:47 | Emergency (ER) | payer OTHER | END 2020-02-07 20:55 | disposition left against medical advice (07) | LOC: EMS 20:47 | DX: M25.569 Pain in unspecified knee (principal); Z53.21 Procedure and treatment not carried out due to patient leaving prior to being seen by health care provider ==

== ENCOUNTER 2020-03-08 17:10 | Inpatient (IN) | payer MEDICAID, OTHER ==
[~2020-03-08] VITALS: Ht 190.5 cm; Wt 110.9 kg
[~2020-03-08 17:10] MED LIST changes: -CITA-106 PO; +CITA-144 PO
[2020-03-08] MEDS ORDERED: SHOT IM (17:14)
[2020-03-08] MEDS ORDERED: ACETAMINOPHEN 500 MG TABLET PO ONE (18:00)
[2020-03-08 18:08] LABS: BASOPHILS % (AUTO) 0.5 % (0.0-2.0); EOSINOPHILS % (AUTO) 4.1 % (1.0-6.0); HEMATOCRIT 40.4 % (41-53); HEMOGLOBIN 13.7 g/dL (13.5-17.5); LYMPHOCYTES # (AUTO) 1.4 K/uL (1.0-4.8); LYMPHOCYTES % (AUTO) 32.5 % (22.0-44.0); MEAN CORPUSCULAR HEMOGLOBIN 26.7 pg (26.0-34.0); MEAN CORPUSCULAR HGB CONC 33.8 G/dL (31.0-37.0); MEAN CORPUSCULAR VOLUME 79 fL (80-100); MONOCYTES # (AUTO) 0.5 K/uL (0.1-1.0); MONOCYTES % (AUTO) 12.9 % (2.0-9.0); NEUTROPHILS # (AUTO) 2.1 K/uL (1.8-7.7); PLATELET COUNT (AUTO) 282 K/uL (150-450); RED BLOOD CELL COUNT(AUTO) 5.12 MIL/uL (4.50-5.90); RED CELL DISTRIBUTION WIDTH 16.5 % (11.5-14.5)
[2020-03-08 18:21] LABS: ANION GAP 9 mmol/L (8-16); CALCIUM, TOTAL 8.9 mg/dL (8.8-10.5); CARBON DIOXIDE 26 mmol/L (22-29); CHLORIDE 105 mmol/L (98-107); CREATININE 1.33 mg/dL (0.60-1.30); GLOMERULAR FILTR. RATE CALC > 60 mL/min (>60); GLUCOSE,RANDOM 139 mg/dL (70-110); SODIUM SERUM 140 mmol/L (136-145); UREA NITROGEN, BLOOD 20 mg/dL (7-18)
[2020-03-08 18:27] LABS: ALANINE AMINOTRANSFERASE 45 U/L (12-78); ALBUMIN 3.8 g/dL (3.4-5.0); ALKALINE PHOSPHATASE 153 U/L (46-116); ASPARTATE AMINOTRANSFERASE 17 U/L (15-37); BILIRUBIN,TOTAL 0.7 mg/dL (0.1-1.0); TOTAL PROTEIN, SERUM 7.1 g/dL (6.4-8.2)
[2020-03-08 19:41] LABS: AMPHET/METH SCREEN,URINE POSITIVE (NEGATIVE); BARBITURATE SCREEN, URINE NEGATIVE (NEGATIVE); BENZODIAZEPINES SCREEN,URINE NEGATIVE (NEGATIVE); CANNABINOID SCREEN,URINE NEGATIVE (NEGATIVE); COCAINE SCREEN,URINE NEGATIVE (NEGATIVE); METHADONE SCREEN, URINE NEGATIVE (NEGATIVE); OPIATE SCREEN,URINE NEGATIVE (NEGATIVE); PHENCYCLIDINE SCREEN,URINE POSITIVE (NEGATIVE)
[2020-03-08] MEDS ORDERED: GuaiFENesin/D-METHORPHAN [SUGAR-FREE] 200-20MG/10 ML SYRUP UDCUP PO PRN (22:30)
[2020-03-08] MEDS ORDERED: TUBERCULIN, PURIFIED PROTEIN DERIVATIVE 5 TU/0.1 ML SYRINGE ID ONE (22:30)
[2020-03-08] MEDS ORDERED: LOPERAMIDE HCL 2 MG CAPSULE PO PRN (22:30)
[2020-03-08] MEDS ORDERED: ACETAMINOPHEN 325 MG TABLET PO PRN (22:30)
[2020-03-08] MEDS ORDERED: LORazepam 2 MG TABLET PO PRN (22:30)
[2020-03-08] MEDS ORDERED: HydrOXYzine PAMOATE 50 MG CAPSULE PO PRN (22:30)
[2020-03-08] MEDS ORDERED: MAG HYDROX/AL HYDROX/SIMETH ES 30 ML SUSPENSION UDCUP PO PRN (22:30)
[2020-03-08] MEDS ORDERED: PROMETHAZINE HCL 25 MG TABLET PO PRN (22:30)
[2020-03-08] MEDS ORDERED: OLANZapine 5 MG RAPDIS TABLET PO PRN (22:30)
[2020-03-08] MEDS ORDERED: MAGNESIUM HYDROXIDE SUSPENSION 30 ML UDCUP PO PRN (22:30)
[2020-03-08] MEDS ORDERED: ZOLPIDEM TARTRATE 10 MG TABLET PO PRN (22:30)
[2020-03-08] MEDS ORDERED: PALIPERIDONE 1.5 MG ER TABLET PO PRN (22:45)
[2020-03-09 05:27] LABS: CHOL/HDL RATIO 2.1 (4.2-7.3); FREE T4 (FREE THYROXINE) 1.14 ng/dL (0.76-1.46); THYROID STIMULATING HORMONE 0.84 uIU/mL (0.36-3.74)
[2020-03-09 05:32] LABS: HEMOGLOBIN A1C 6.4 % (3.8-5.6)
[2020-03-09] MEDS ORDERED: FLUoxetine HCL 20 MG CAPSULE PO SCH (09:00)
[2020-03-09] MEDS ORDERED: MULTIVITAMINS WITH MINERALS, THERAPEUTIC TABLET PO SCH (09:00)
[2020-03-09] MEDS ORDERED: PALIPERIDONE PALMITATE 234 MG/1.5 ML SYRINGE IM ONE (09:00)
[2020-03-09] MEDS ORDERED: FOLIC ACID 1 MG TABLET PO SCH (09:00)
[2020-03-09] MEDS ORDERED: NALTREXONE HCL 50 MG TABLET PO SCH (09:00)
[2020-03-09] MEDS: THIAMINE 100 MG TABLET PO SCH ×2 (10:28→16:28)
[2020-03-09 12:57] VITALS: BP 108/67
[2020-03-09] MEDS ORDERED: NALT50TA PO (15:12)
[2020-03-09] MEDS ORDERED: CITA-144 PO (15:12)
[2020-03-09] MEDS ORDERED: PALI117D IM (15:12)
[2020-03-09 16:11] VITALS: BP 123/68
[2020-03-09] MEDS ORDERED: OLANZapine 5 MG RAPDIS TABLET PO SCH (21:00)
[2020-03-09] MEDS ORDERED: PALIPERIDONE 3 MG ER TABLET PO SCH (21:00)
[2020-03-09] MEDS ORDERED: PALIPERIDONE PALMITATE 39 MG/0.25 ML SYRINGE IM ONE (21:00)
[2020-03-10 00:38] VITALS: BP 118/74
[2020-03-10] MEDS ORDERED: CITA-144 PO (01:45)
[2020-03-10] MEDS ORDERED: NALT50TA6 PO (01:46)
[2020-03-10] MEDS ORDERED: PALI117D IM (01:47)
[2020-03-10] MEDS ORDERED: PALIPERIDONE PALMITATE 234 MG/1.5 ML SYRINGE IM ONE (06:30)
[2020-03-10 07:15] VITALS: BP 127/80
[2020-03-10] MEDS ORDERED: CITALOPRAM HYDROBROMIDE 20 MG TABLET PO SCH ×2 (09:00)
[2020-03-10] MEDS ORDERED: PALIPERIDONE PALMITATE 117 MG/0.75 ML SYRINGE IM SCH (09:00)
[2020-03-10] MEDS ORDERED: NALTREXONE HCL 50 MG TABLET PO SCH (09:00)
[2020-03-13] MEDS ORDERED: PALIPERIDONE PALMITATE 156 MG/ML SYRINGE IM ONE (09:00)
[2020-04-06] MEDS ORDERED: PALIPERIDONE PALMITATE 117 MG/0.75 ML SYRINGE IM SCH (09:00)
== END 2020-03-10 08:42 | disposition home or self-care (01) | DRG 750 ==
LOC: EMS 17:18 → B2X 22:30
PROVIDERS: ADMIT Psychiatry & Neurology Psychiatry; ATTEND Psychiatry & Neurology Psychiatry
DX: F25.9 Schizoaffective disorder, unspecified (principal); N17.9 Acute kidney failure, unspecified; R45.851 Suicidal ideations; E11.9 Type 2 diabetes mellitus without complications; Z91.19 Patient's noncompliance with other medical treatment and regimen; F17.210 Nicotine dependence, cigarettes, uncomplicated; I10 Essential (primary) hypertension; J44.9 Chronic obstructive pulmonary disease, unspecified; K21.9 Gastro-esophageal reflux disease without esophagitis; F12.90 Cannabis use, unspecified, uncomplicated; F14.90 Cocaine use, unspecified, uncomplicated; F10.20 Alcohol dependence, uncomplicated; F15.10 Other stimulant abuse, uncomplicated; Z79.899 Other long term (current) drug therapy
CPT/HCPCS: 83036; 84439; 84443; 86592; G0480

== ENCOUNTER 2020-06-07 11:24 | Inpatient (IN) | payer MEDICAID ==
[~2020-06-07] VITALS: Ht 190.5 cm; Wt 107.7 kg
[~2020-06-07 11:24] MED LIST changes: +NALT50TA PO; +NALT50TA6 PO; +PALI117D IM; -RISP1 PO
[2020-06-07 12:11] VITALS: BP 138/83
[2020-06-07] MEDS ORDERED: ZOLPIDEM TARTRATE 10 MG TABLET PO PRN (12:30)
[2020-06-07] MEDS ORDERED: LORazepam 2 MG TABLET PO PRN (12:30)
[2020-06-07 16:33] VITALS: BP 114/84
[2020-06-07] MEDS ORDERED: -PHARMACY VACCINE NOTE- MISC ONE (17:00)
[2020-06-07] MEDS ORDERED: GLUCAGON,HUMAN RECOMBINANT 1 MG VIAL IM PRN (18:30)
[2020-06-07] MEDS ORDERED: INSULIN LISPRO 100 UNITS/ML SQ PRN (18:30)
[2020-06-08 00:10] VITALS: BP 144/72
[2020-06-08 08:08] VITALS: BP 154/105
[2020-06-08 08:10] LABS: BASOPHILS % (AUTO) 1.6 % (0.0-2.0); EOSINOPHILS % (AUTO) 5.5 % (1.0-6.0); HEMATOCRIT 41.1 % (41-53); LYMPHOCYTES # (AUTO) 1.2 K/uL (1.0-4.8); LYMPHOCYTES % (AUTO) 31.1 % (22.0-44.0); MEAN CORPUSCULAR HEMOGLOBIN 26.8 pg (26.0-34.0); MEAN CORPUSCULAR VOLUME 79 fL (80-100); MONOCYTES # (AUTO) 0.3 K/uL (0.1-1.0); MONOCYTES % (AUTO) 7.7 % (2.0-9.0); NEUTROPHILS # (AUTO) 2.1 K/uL (1.8-7.7); NEUTROPHILS % (AUTO) 54.1 % (40.0-70.0); PLATELET COUNT (AUTO) 230 K/uL (150-450); RED CELL DISTRIBUTION WIDTH 16.5 % (11.5-14.5)
[2020-06-08 08:13] LABS: HEMOGLOBIN A1C 6.1 % (3.8-5.6)
[2020-06-08 08:20] LABS: ALANINE AMINOTRANSFERASE 21 U/L (12-78); ALBUMIN 3.2 g/dL (3.4-5.0); ALKALINE PHOSPHATASE 107 U/L (46-116); ANION GAP 6 mmol/L (8-16); ASPARTATE AMINOTRANSFERASE 14 U/L (15-37); BILIRUBIN,TOTAL 0.5 mg/dL (0.1-1.0); CALCIUM, TOTAL 8.8 mg/dL (8.8-10.5); CARBON DIOXIDE 28 mmol/L (22-29); CHLORIDE 108 mmol/L (98-107); CHOL/HDL RATIO 2.2 (4.2-7.3); CHOLESTEROL 145 mg/dL (131-200); CREATININE 1.21 mg/dL (0.60-1.30); GLOMERULAR FILTR. RATE CALC > 60 mL/min (>60); GLUCOSE,RANDOM 111 mg/dL (70-110); HDL CHOLESTEROL 65 mg/dL (40-60); LDL CHOL (CALC.) 68 mg/dL (0-130); POTASSIUM 3.9 mmol/L (3.5-5.1); SODIUM SERUM 142 mmol/L (136-145); TRIGLYCERIDES 62 mg/dL (15-150); UREA NITROGEN, BLOOD 11 mg/dL (7-18)
[2020-06-08] MEDS: NALTREXONE HCL 50 MG TABLET PO SCH (13:20)
[2020-06-08] MEDS: CITALOPRAM HYDROBROMIDE 20 MG TABLET PO SCH (13:20)
[2020-06-08] MEDS: HALOPERIDOL 5 MG TABLET PO PRN (15:52)
[2020-06-08] MEDS: RisperiDONE 1 MG TABLET PO SCH (15:52)
[2020-06-08 16:04] VITALS: BP 149/107
[2020-06-08 22:04] VITALS: BP 130/76
[2020-06-09 04:15] VITALS: BP 129/81
[2020-06-09 08:45] VITALS: BP 156/95
[2020-06-09] MEDS: CITALOPRAM HYDROBROMIDE 20 MG TABLET PO SCH (08:46)
[2020-06-09] MEDS: NALTREXONE HCL 50 MG TABLET PO SCH (08:46)
[2020-06-09] MEDS: RisperiDONE 1 MG TABLET PO SCH ×2 (08:46→16:12)
[2020-06-09 16:03] VITALS: BP 145/91
[2020-06-09] MEDS: HALOPERIDOL 5 MG TABLET PO PRN (16:16)
[2020-06-10 00:11] VITALS: BP 126/98
[2020-06-10 08:09] LABS: ANION GAP 5 mmol/L (8-16); CALCIUM, TOTAL 9.1 mg/dL (8.8-10.5); CARBON DIOXIDE 29 mmol/L (22-29); CHLORIDE 105 mmol/L (98-107); CREATININE 1.12 mg/dL (0.60-1.30); GLOMERULAR FILTR. RATE CALC > 60 mL/min (>60); GLUCOSE,RANDOM 100 mg/dL (70-110); SODIUM SERUM 139 mmol/L (136-145); UREA NITROGEN, BLOOD 12 mg/dL (7-18)
[2020-06-10 08:22] VITALS: BP 115/73
[2020-06-10] MEDS: NALTREXONE HCL 50 MG TABLET PO SCH (08:36)
[2020-06-10] MEDS: RisperiDONE 1 MG TABLET PO SCH (08:36)
[2020-06-10] MEDS: CITALOPRAM HYDROBROMIDE 20 MG TABLET PO SCH (08:36)
[2020-06-10] MEDS: RisperiDONE 2 MG TABLET PO SCH (16:03)
[2020-06-10 16:05] VITALS: BP 123/93
[2020-06-11 02:57] VITALS: BP 120/76
[2020-06-11 08:17] VITALS: BP 114/96
[2020-06-11] MEDS: RisperiDONE 2 MG TABLET PO SCH ×2 (08:36→16:43)
[2020-06-11] MEDS: CITALOPRAM HYDROBROMIDE 20 MG TABLET PO SCH (08:36)
[2020-06-11] MEDS: NALTREXONE HCL 50 MG TABLET PO SCH (08:36)
[2020-06-11 16:16] VITALS: BP 140/83
[2020-06-12 05:52] VITALS: BP 140/84
[2020-06-12] MEDS: CITALOPRAM HYDROBROMIDE 20 MG TABLET PO SCH (08:41)
[2020-06-12] MEDS: RisperiDONE 2 MG TABLET PO SCH ×2 (08:41→16:21)
[2020-06-12] MEDS: NALTREXONE HCL 50 MG TABLET PO SCH (08:41)
[2020-06-12 09:27] VITALS: BP 126/68
[2020-06-12 16:10] VITALS: BP 114/67
[2020-06-13] VITALS: BP 101/65
[2020-06-13 08:08] VITALS: BP 120/67
[2020-06-13] MEDS: RisperiDONE 2 MG TABLET PO SCH ×2 (08:14→16:07)
[2020-06-13] MEDS: CITALOPRAM HYDROBROMIDE 20 MG TABLET PO SCH (08:14)
[2020-06-13] MEDS: NALTREXONE HCL 50 MG TABLET PO SCH (08:14)
[2020-06-13 16:03] VITALS: BP 114/67
[2020-06-14 06:24] VITALS: BP 120/74
[2020-06-14 08:24] VITALS: BP 129/60
[2020-06-14] MEDS: CITALOPRAM HYDROBROMIDE 20 MG TABLET PO SCH (08:38)
[2020-06-14] MEDS: NALTREXONE HCL 50 MG TABLET PO SCH (08:38)
[2020-06-14] MEDS: RisperiDONE 2 MG TABLET PO SCH ×2 (08:38→16:10)
[2020-06-14 09:16] VITALS: BP 127/70
[2020-06-14] MEDS: OLANZapine 5 MG RAPDIS TABLET PO SCH ×2 (10:44→20:12)
[2020-06-14 16:04] VITALS: BP 106/60
[2020-06-15 06:21] VITALS: BP 116/73
[2020-06-15 08:08] VITALS: BP 113/68
[2020-06-15] MEDS: RisperiDONE 2 MG TABLET PO SCH ×2 (08:35→16:01)
[2020-06-15] MEDS: NALTREXONE HCL 50 MG TABLET PO SCH (08:35)
[2020-06-15] MEDS: CITALOPRAM HYDROBROMIDE 20 MG TABLET PO SCH (08:35)
[2020-06-15] MEDS: OLANZapine 5 MG RAPDIS TABLET PO SCH ×2 (08:35→20:06)
[2020-06-15 16:03] VITALS: BP 121/72
[2020-06-16 01:15] VITALS: BP 110/74
[2020-06-16 08:01] VITALS: BP 106/69
[2020-06-16] MEDS: NALTREXONE HCL 50 MG TABLET PO SCH (08:10)
[2020-06-16] MEDS: OLANZapine 5 MG RAPDIS TABLET PO SCH ×2 (08:10→19:51)
[2020-06-16] MEDS: RisperiDONE 2 MG TABLET PO SCH ×2 (08:10→16:05)
[2020-06-16] MEDS: CITALOPRAM HYDROBROMIDE 20 MG TABLET PO SCH (08:10)
[2020-06-16 16:10] VITALS: BP 128/82
[2020-06-17 04:39] VITALS: BP 126/84
[2020-06-17] MEDS: NALTREXONE HCL 50 MG TABLET PO SCH (08:12)
[2020-06-17] MEDS: OLANZapine 5 MG RAPDIS TABLET PO SCH ×2 (08:12→20:06)
[2020-06-17] MEDS: CITALOPRAM HYDROBROMIDE 20 MG TABLET PO SCH (08:12)
[2020-06-17] MEDS: RisperiDONE 2 MG TABLET PO SCH ×2 (08:12→16:13)
[2020-06-17 08:51] VITALS: BP 120/80
[2020-06-17 16:22] VITALS: BP 117/78
[2020-06-18 05:00] VITALS: BP 122/75
[2020-06-18] MEDS: OLANZapine 5 MG RAPDIS TABLET PO SCH ×2 (08:27→20:38)
[2020-06-18] MEDS: NALTREXONE HCL 50 MG TABLET PO SCH (08:27)
[2020-06-18] MEDS: CITALOPRAM HYDROBROMIDE 20 MG TABLET PO SCH (08:27)
[2020-06-18] MEDS: RisperiDONE 2 MG TABLET PO SCH ×2 (08:27→16:53)
[2020-06-18 08:40] VITALS: BP 130/78
[2020-06-18 16:00] VITALS: BP 111/60
[2020-06-19 01:36] VITALS: BP 112/75
[2020-06-19] MEDS: OLANZapine 5 MG RAPDIS TABLET PO SCH ×2 (08:18→20:14)
[2020-06-19] MEDS: RisperiDONE 2 MG TABLET PO SCH ×2 (08:18→16:52)
[2020-06-19] MEDS: CITALOPRAM HYDROBROMIDE 20 MG TABLET PO SCH (08:18)
[2020-06-19] MEDS: NALTREXONE HCL 50 MG TABLET PO SCH (08:19)
[2020-06-19 08:54] VITALS: BP 105/64
[2020-06-19 16:00] VITALS: BP 115/63
[2020-06-20 05:22] VITALS: BP 123/70
[2020-06-20 08:01] VITALS: BP 119/91
[2020-06-20] MEDS: CITALOPRAM HYDROBROMIDE 20 MG TABLET PO SCH (08:16)
[2020-06-20] MEDS: NALTREXONE HCL 50 MG TABLET PO SCH (08:16)
[2020-06-20] MEDS: OLANZapine 5 MG RAPDIS TABLET PO SCH ×2 (08:16→20:04)
[2020-06-20] MEDS: RisperiDONE 2 MG TABLET PO SCH ×2 (08:17→16:02)
[2020-06-20 16:05] VITALS: BP 111/66
[2020-06-21 00:33] VITALS: BP 117/67
[2020-06-21 08:58] VITALS: BP 120/72
[2020-06-21] MEDS: RisperiDONE 2 MG TABLET PO SCH ×2 (09:13→16:13)
[2020-06-21] MEDS: CITALOPRAM HYDROBROMIDE 20 MG TABLET PO SCH (09:14)
[2020-06-21] MEDS: NALTREXONE HCL 50 MG TABLET PO SCH (09:14)
[2020-06-21] MEDS: OLANZapine 5 MG RAPDIS TABLET PO SCH ×2 (09:14→20:06)
[2020-06-21 16:00] VITALS: BP 130/87
[2020-06-22 04:26] VITALS: BP 124/68
[2020-06-22 08:16] VITALS: BP 126/75
[2020-06-22] MEDS: CITALOPRAM HYDROBROMIDE 20 MG TABLET PO SCH (09:04)
[2020-06-22] MEDS: NALTREXONE HCL 50 MG TABLET PO SCH (09:04)
[2020-06-22] MEDS: OLANZapine 5 MG RAPDIS TABLET PO SCH ×2 (09:04→20:00)
[2020-06-22] MEDS: RisperiDONE 2 MG TABLET PO SCH ×2 (09:04→16:08)
[2020-06-22 16:36] VITALS: BP 138/86
[2020-06-23 00:33] VITALS: BP 135/78
[2020-06-23 08:05] VITALS: BP 126/76
[2020-06-23] MEDS: OLANZapine 5 MG RAPDIS TABLET PO SCH ×2 (08:26→19:59)
[2020-06-23] MEDS: RisperiDONE 2 MG TABLET PO SCH ×2 (08:26→16:09)
[2020-06-23] MEDS: CITALOPRAM HYDROBROMIDE 20 MG TABLET PO SCH (08:26)
[2020-06-23] MEDS: NALTREXONE HCL 50 MG TABLET PO SCH (08:26)
[2020-06-23 16:54] LABS: GLUCOMETER DEV NAME(LOC) BV2S.; GLUCOSE,POINT OF CARE 158 MG/DL (70-110)
[2020-06-23] MEDS ORDERED: IBUPROFEN 600 MG TABLET PO PRN (17:15)
[2020-06-23] MEDS ORDERED: ACETAMINOPHEN 325 MG TABLET PO PRN (17:15)
[2020-06-23 17:41] VITALS: BP 151/94
[2020-06-23 19:44] VITALS: BP 147/80
[2020-06-23 21:11] VITALS: BP 122/73
[2020-06-24 06:27] VITALS: BP 121/70
[2020-06-24 08:11] VITALS: BP 121/71
[2020-06-24] MEDS: RisperiDONE 2 MG TABLET PO SCH ×2 (08:25→16:01)
[2020-06-24] MEDS: NALTREXONE HCL 50 MG TABLET PO SCH (08:25)
[2020-06-24] MEDS: OLANZapine 5 MG RAPDIS TABLET PO SCH ×2 (08:25→20:59)
[2020-06-24] MEDS: CITALOPRAM HYDROBROMIDE 20 MG TABLET PO SCH (08:25)
[2020-06-24 16:28] VITALS: BP 105/65
[2020-06-25 00:03] VITALS: BP 122/78
[2020-06-25] MEDS: RisperiDONE 2 MG TABLET PO SCH ×2 (08:43→16:09)
[2020-06-25] MEDS: CITALOPRAM HYDROBROMIDE 20 MG TABLET PO SCH (08:43)
[2020-06-25] MEDS: OLANZapine 5 MG RAPDIS TABLET PO SCH ×2 (08:43→20:21)
[2020-06-25] MEDS: NALTREXONE HCL 50 MG TABLET PO SCH (08:43)
[2020-06-25 09:09] VITALS: BP 120/82
[2020-06-25 16:00] VITALS: BP 103/70
[2020-06-26 00:29] VITALS: BP 110/78
[2020-06-26] MEDS: CITALOPRAM HYDROBROMIDE 20 MG TABLET PO SCH (08:25)
[2020-06-26] MEDS: RisperiDONE 2 MG TABLET PO SCH ×2 (08:25→16:17)
[2020-06-26] MEDS: OLANZapine 5 MG RAPDIS TABLET PO SCH ×2 (08:25→20:12)
[2020-06-26] MEDS: NALTREXONE HCL 50 MG TABLET PO SCH (08:25)
[2020-06-26 09:26] VITALS: BP 110/70
[2020-06-26 16:32] VITALS: BP 106/72
[2020-06-27] VITALS: BP 120/76
[2020-06-27] MEDS: RisperiDONE 2 MG TABLET PO SCH ×2 (08:34→16:20)
[2020-06-27] MEDS: OLANZapine 5 MG RAPDIS TABLET PO SCH ×2 (08:34→20:06)
[2020-06-27] MEDS: CITALOPRAM HYDROBROMIDE 20 MG TABLET PO SCH (08:34)
[2020-06-27] MEDS: NALTREXONE HCL 50 MG TABLET PO SCH (08:34)
[2020-06-27 08:47] VITALS: BP 126/80
[2020-06-27 16:40] VITALS: BP 137/71
[2020-06-28] VITALS: BP 135/86
[2020-06-28] MEDS: RisperiDONE 2 MG TABLET PO SCH (08:06)
[2020-06-28] MEDS: CITALOPRAM HYDROBROMIDE 20 MG TABLET PO SCH (08:06)
[2020-06-28] MEDS: OLANZapine 5 MG RAPDIS TABLET PO SCH (08:06)
[2020-06-28 08:07] VITALS: BP 107/67
[2020-06-28] MEDS: NALTREXONE HCL 50 MG TABLET PO SCH (09:00)
[2020-06-28] MEDS ORDERED: OLAN5TAB40 PO (11:47)
[2020-06-28] MEDS ORDERED: RISP2TAB23 PO (11:47)
== END 2020-06-28 15:15 | disposition home or self-care (01) | DRG 750 ==
LOC: B2S 16:12
PROVIDERS: ADMIT Psychiatry & Neurology Child & Adolescent Psychiatry; ATTEND Psychiatry & Neurology Child & Adolescent Psychiatry
DX: F25.1 Schizoaffective disorder, depressive type (principal); F41.9 Anxiety disorder, unspecified; Z82.5 Family history of asthma and other chronic lower respiratory diseases; Z82.49 Family history of ischemic heart disease and other diseases of the circulatory system; J44.9 Chronic obstructive pulmonary disease, unspecified; N17.9 Acute kidney failure, unspecified; N18.9 Chronic kidney disease, unspecified; E11.22 Type 2 diabetes mellitus with diabetic chronic kidney disease; I12.9 Hypertensive chronic kidney disease with stage 1 through stage 4 chronic kidney disease, or unspecified chronic kidney disease; K21.9 Gastro-esophageal reflux disease without esophagitis; F19.10 Other psychoactive substance abuse, uncomplicated; Z91.19 Patient's noncompliance with other medical treatment and regimen; Z59.0 Homelessness; R45.851 Suicidal ideations
CPT/HCPCS: 80074; 83036

== ENCOUNTER 2021-01-16 19:26 | Inpatient (IN) | payer MEDICAID ==
[~2021-01-16] VITALS: Ht 190.5 cm; Wt 122.0 kg
[~2021-01-16 19:26] MED LIST changes: -NALT50TA PO; +OLAN5TAB40 PO; -PALI117D IM; +RISP2TAB45 PO
[2021-01-16 21:49] LABS: COVID AG,FIA SOURCE NASOPHARYNGEAL
[2021-01-16] MEDS ORDERED: ZOLPIDEM TARTRATE 10 MG TABLET PO PRN (23:45)
[2021-01-16] MEDS ORDERED: LORazepam 2 MG TABLET PO PRN (23:45)
[2021-01-16] MEDS ORDERED: HALOPERIDOL 5 MG TABLET PO PRN (23:45)
[2021-01-17 00:09] VITALS: BP 122/87
[2021-01-17] MEDS ORDERED: INFLUENZA VIRUS VACCINE QVS 2020-21 (6MO+)/PF 60 MCG/0.5 ML SYRINGE IM ONE (00:15)
[2021-01-17] MEDS ORDERED: DOCUSATE SODIUM 100 MG CAPSULE PO PRN (07:00)
[2021-01-17] MEDS ORDERED: ACETAMINOPHEN 325 MG TABLET PO PRN (07:00)
[2021-01-17] MEDS ORDERED: PETROLATUM,WHITE 28 GM JELLY TP PRN (07:00)
[2021-01-17] MEDS ORDERED: ALBUTEROL SULFATE HFA 90 MCG/PUFF 8 GM INHALER IH PRN (07:00)
[2021-01-17] MEDS ORDERED: GuaiFENesin/D-METHORPHAN [SUGAR-FREE] 200-20MG/10 ML SYRUP UDCUP PO PRN (07:00)
[2021-01-17] MEDS ORDERED: LOPERAMIDE HCL 2 MG CAPSULE PO PRN (07:00)
[2021-01-17] MEDS ORDERED: IBUPROFEN 400 MG TABLET PO PRN (07:00)
[2021-01-17] MEDS ORDERED: MAGNESIUM HYDROXIDE SUSPENSION 30 ML UDCUP PO PRN (07:00)
[2021-01-17] MEDS ORDERED: ONDANSETRON HCL 4 MG TABLET PO PRN (07:00)
[2021-01-17] MEDS ORDERED: NICOTINE 14 MG/24 HOUR PATCH TD PRN (07:00)
[2021-01-17] MEDS ORDERED: CloNIDine HCL 0.1 MG TABLET PO PRN (07:00)
[2021-01-17] MEDS ORDERED: MAG HYDROX/AL HYDROX/SIMETH ES 30 ML SUSPENSION UDCUP PO PRN (07:00)
[2021-01-17 08:40] VITALS: BP 106/73
[2021-01-17] MEDS: OLANZapine 5 MG TABLET PO SCH ×2 (12:40→17:00)
[2021-01-17] MEDS: NALTREXONE HCL 50 MG TABLET PO SCH (12:41)
[2021-01-17] MEDS: CITALOPRAM HYDROBROMIDE 20 MG TABLET PO SCH (12:44)
[2021-01-17 16:20] VITALS: BP 103/62
[2021-01-18 00:38] VITALS: BP 110/64
[2021-01-18 08:34] VITALS: BP 104/62
[2021-01-18] MEDS: NALTREXONE HCL 50 MG TABLET PO SCH (09:18)
[2021-01-18] MEDS: OLANZapine 5 MG TABLET PO SCH ×2 (09:18→16:45)
[2021-01-18] MEDS: CITALOPRAM HYDROBROMIDE 20 MG TABLET PO SCH (09:21)
[2021-01-18 16:13] VITALS: BP 145/81
[2021-01-19 01:20] VITALS: BP 121/70
[2021-01-19 08:14] VITALS: BP 142/87
[2021-01-19] MEDS: NALTREXONE HCL 50 MG TABLET PO SCH (08:42)
[2021-01-19] MEDS: CITALOPRAM HYDROBROMIDE 20 MG TABLET PO SCH (08:43)
[2021-01-19] MEDS: OLANZapine 5 MG TABLET PO SCH ×2 (08:43→16:54)
[2021-01-19 16:08] VITALS: BP 129/87
[2021-01-19] MEDS: GABAPENTIN 300 MG CAPSULE PO SCH (16:54)
[2021-01-20 00:15] VITALS: BP 129/71
[2021-01-20 08:11] VITALS: BP 137/91
[2021-01-20] MEDS: NALTREXONE HCL 50 MG TABLET PO SCH (09:43)
[2021-01-20] MEDS: GABAPENTIN 300 MG CAPSULE PO SCH ×2 (09:44→16:32)
[2021-01-20] MEDS: CITALOPRAM HYDROBROMIDE 20 MG TABLET PO SCH (09:44)
[2021-01-20] MEDS: OLANZapine 5 MG TABLET PO SCH ×2 (09:44→16:32)
[2021-01-20 16:15] VITALS: BP 109/85
[2021-01-21 00:44] VITALS: BP 125/72
[2021-01-21 08:15] LABS: COVID AG,FIA SOURCE NASOPHARYNGEAL
[2021-01-21 08:23] VITALS: BP 134/93
[2021-01-21] MEDS: CITALOPRAM HYDROBROMIDE 20 MG TABLET PO SCH (08:42)
[2021-01-21] MEDS: OLANZapine 5 MG TABLET PO SCH ×2 (08:42→18:28)
[2021-01-21] MEDS: GABAPENTIN 300 MG CAPSULE PO SCH ×2 (08:42→18:28)
[2021-01-21] MEDS: NALTREXONE HCL 50 MG TABLET PO SCH (08:46)
[2021-01-21 16:08] VITALS: BP 112/76
[2021-01-22 06:29] VITALS: BP 143/92
[2021-01-22] MEDS: CITALOPRAM HYDROBROMIDE 20 MG TABLET PO SCH (08:12)
[2021-01-22] MEDS: GABAPENTIN 300 MG CAPSULE PO SCH ×2 (08:12→17:29)
[2021-01-22] MEDS: NALTREXONE HCL 50 MG TABLET PO SCH (08:12)
[2021-01-22] MEDS: OLANZapine 5 MG TABLET PO SCH ×2 (08:12→17:29)
[2021-01-22 08:15] VITALS: BP 141/87
[2021-01-22 16:00] VITALS: BP 118/95
[2021-01-23 08:11] VITALS: BP 137/85
[2021-01-23] MEDS: CITALOPRAM HYDROBROMIDE 20 MG TABLET PO SCH (09:00)
[2021-01-23] MEDS: GABAPENTIN 300 MG CAPSULE PO SCH (09:00)
[2021-01-23] MEDS: OLANZapine 5 MG TABLET PO SCH (09:00)
[2021-01-23] MEDS: NALTREXONE HCL 50 MG TABLET PO SCH (09:01)
[2021-01-23] MEDS ORDERED: GABA-1181 PO (14:38)
== END 2021-01-23 16:00 | disposition home or self-care (01) | DRG 750 ==
LOC: B2S 23:10
PROVIDERS: ADMIT Psychiatry & Neurology Psychiatry; ATTEND Psychiatry & Neurology Psychiatry
DX: F25.9 Schizoaffective disorder, unspecified (principal); I10 Essential (primary) hypertension; J44.9 Chronic obstructive pulmonary disease, unspecified; R73.03 Prediabetes; E66.9 Obesity, unspecified; Z20.822 Contact with and (suspected) exposure to COVID-19; Z68.33 Body mass index [BMI] 33.0-33.9, adult; Z91.5 Personal history of self-harm; Z87.891 Personal history of nicotine dependence
CPT/HCPCS: 87426; Z7610

== ENCOUNTER 2021-09-01 15:08 | Inpatient (IN) | payer MEDICAID ==
[~2021-09-01] VITALS: Ht 190.5 cm; Wt 123.8 kg
[~2021-09-01 15:08] MED LIST changes: +GABA-1181 PO; -OLAN5TAB40 PO; +OLAN5TAB94 PO; -RISP2TAB45 PO
[2021-09-01 15:53] VITALS: BP 106/68
[2021-09-01] MEDS ORDERED: ZOLPIDEM TARTRATE 10 MG TABLET PO PRN (16:00)
[2021-09-01] MEDS ORDERED: LORazepam 2 MG TABLET PO PRN (16:00)
[2021-09-01] MEDS ORDERED: HALOPERIDOL 5 MG TABLET PO PRN (16:00)
[2021-09-01 18:41] LABS: GLUCOMETER DEV NAME(LOC) POC.BV
[2021-09-01] MEDS ORDERED: INFLUENZA VIRUS VACCINE QVS 2021-22 (6MO+)/PF 60 MCG/0.5 ML SYRINGE IM. ONE (19:00)
[2021-09-01 20:28] VITALS: BP 124/71
[2021-09-02 00:41] VITALS: BP 126/76
[2021-09-02 08:28] VITALS: BP 130/78
[2021-09-02] MEDS: OLANZapine 5 MG RAPDIS TABLET PO SCH ×2 (10:25→20:49)
[2021-09-02] MEDS: CITALOPRAM HYDROBROMIDE 20 MG TABLET PO SCH (10:25)
[2021-09-02] MEDS ORDERED: ACETAMINOPHEN 325 MG TABLET PO PRN (11:00)
[2021-09-02] MEDS ORDERED: NICOTINE 14 MG/24 HOUR PATCH TD PRN (11:00)
[2021-09-02] MEDS ORDERED: IBUPROFEN 400 MG TABLET PO PRN (11:00)
[2021-09-02] MEDS ORDERED: ALBUTEROL SULFATE HFA 90 MCG/PUFF 8 GM INHALER IH PRN (11:00)
[2021-09-02] MEDS ORDERED: MAGNESIUM HYDROXIDE SUSPENSION 30 ML UDCUP PO PRN (11:00)
[2021-09-02] MEDS ORDERED: PETROLATUM,WHITE 28 GM JELLY TP PRN (11:00)
[2021-09-02] MEDS ORDERED: GuaiFENesin/D-METHORPHAN [SUGAR-FREE] 200-20MG/10 ML SYRUP UDCUP PO PRN (11:00)
[2021-09-02] MEDS ORDERED: ONDANSETRON HCL 4 MG TABLET PO PRN (11:00)
[2021-09-02] MEDS ORDERED: LOPERAMIDE HCL 2 MG CAPSULE PO PRN (11:00)
[2021-09-02] MEDS ORDERED: DOCUSATE SODIUM 100 MG CAPSULE PO PRN (11:00)
[2021-09-02] MEDS ORDERED: MAG HYDROX/AL HYDROX/SIMETH ES 30 ML SUSPENSION UDCUP PO PRN (11:00)
[2021-09-02] MEDS ORDERED: CloNIDine HCL 0.1 MG TABLET PO PRN (11:00)
[2021-09-02 16:11] VITALS: BP 127/68
[2021-09-03 08:37] VITALS: BP 120/85
[2021-09-03] MEDS: OLANZapine 5 MG RAPDIS TABLET PO SCH ×2 (08:52→20:44)
[2021-09-03] MEDS: CITALOPRAM HYDROBROMIDE 20 MG TABLET PO SCH (09:00)
[2021-09-03 16:15] VITALS: BP 138/81
[2021-09-04 05:17] VITALS: BP 121/68
[2021-09-04 08:10] VITALS: BP 137/92
[2021-09-04] MEDS: OLANZapine 5 MG RAPDIS TABLET PO SCH ×2 (08:51→20:26)
[2021-09-04] MEDS: CITALOPRAM HYDROBROMIDE 20 MG TABLET PO SCH (09:00)
[2021-09-04 16:16] VITALS: BP 134/86
[2021-09-05 00:20] VITALS: BP 120/81
[2021-09-05 08:19] VITALS: BP 137/93
[2021-09-05] MEDS: CITALOPRAM HYDROBROMIDE 20 MG TABLET PO SCH ×2 (08:39→09:00)
[2021-09-05] MEDS: OLANZapine 5 MG RAPDIS TABLET PO SCH ×2 (08:39→20:36)
[2021-09-05 16:11] VITALS: BP 129/83
[2021-09-06 00:22] VITALS: BP 130/82
[2021-09-06] MEDS: CITALOPRAM HYDROBROMIDE 20 MG TABLET PO SCH (08:31)
[2021-09-06] MEDS: OLANZapine 5 MG RAPDIS TABLET PO SCH ×2 (08:32→20:39)
[2021-09-06 11:13] VITALS: BP 143/90
[2021-09-06 16:19] VITALS: BP 120/85
[2021-09-07 00:33] VITALS: BP 128/80
[2021-09-07 08:21] VITALS: BP 148/84
[2021-09-07] MEDS: CITALOPRAM HYDROBROMIDE 20 MG TABLET PO SCH (09:00)
[2021-09-07] MEDS: OLANZapine 5 MG RAPDIS TABLET PO SCH (09:16)
[2021-09-07] MEDS ORDERED: OLAN5TAB94 PO (12:32)
== END 2021-09-07 15:40 | disposition home or self-care (01) | DRG 750 ==
LOC: B2S 18:44 → B3A 09-02 05:57
PROVIDERS: ADMIT Psychiatry & Neurology Psychiatry; ATTEND Psychiatry & Neurology Psychiatry
DX: F25.1 Schizoaffective disorder, depressive type (principal); E11.9 Type 2 diabetes mellitus without complications; R45.851 Suicidal ideations; Z20.822 Contact with and (suspected) exposure to COVID-19; E78.5 Hyperlipidemia, unspecified; F10.10 Alcohol abuse, uncomplicated; E66.9 Obesity, unspecified; I10 Essential (primary) hypertension; J44.9 Chronic obstructive pulmonary disease, unspecified; Z59.00 Homelessness unspecified; Z91.51 Personal history of suicidal behavior; Z68.34 Body mass index [BMI] 34.0-34.9, adult
CPT/HCPCS: 90686

== ENCOUNTER 2021-09-01 16:05 | Emergency (ER) | payer MEDICAID, OTHER ==
[~2021-09-01] VITALS: Ht 185.4 cm; Wt 122.7 kg
[2021-09-01 16:23] VITALS: BP 112/75
[2021-09-01 16:45] LABS: BASOPHILS % (AUTO) 1.1 % (0.0-2.0); EOSINOPHILS % (AUTO) 1.4 % (1.0-6.0); HEMATOCRIT 48.1 % (41-53); HEMOGLOBIN 15.9 g/dL (13.5-17.5); LYMPHOCYTES # (AUTO) 1.9 K/uL (1.0-4.8); LYMPHOCYTES % (AUTO) 25.3 % (22.0-44.0); MEAN CORPUSCULAR HEMOGLOBIN 26.8 pg (26.0-34.0); MEAN CORPUSCULAR VOLUME 81 fL (80-100); MONOCYTES # (AUTO) 0.5 K/uL (0.1-1.0); MONOCYTES % (AUTO) 6.5 % (2.0-9.0); NEUTROPHILS % (AUTO) 65.7 % (40.0-70.0); PLATELET COUNT (AUTO) 326 K/uL (150-450); RED BLOOD CELL COUNT(AUTO) 5.93 MIL/uL (4.50-5.90); RED CELL DISTRIBUTION WIDTH 15.5 % (11.5-14.5)
[2021-09-01 16:57] LABS: CALCIUM, TOTAL 9.6 mg/dL (8.8-10.5); CREATININE 1.62 mg/dL (0.60-1.30); POTASSIUM 3.8 mmol/L (3.5-5.1)
[2021-09-01 17:01] LABS: ALBUMIN 4.3 g/dL (3.4-5.0); BILIRUBIN,TOTAL 0.5 mg/dL (0.1-1.0)
[2021-09-01 17:31] LABS: AMPHET/METH SCREEN,URINE POSITIVE (NEGATIVE); BARBITURATE SCREEN, URINE NEGATIVE (NEGATIVE); BENZODIAZEPINES SCREEN,URINE NEGATIVE (NEGATIVE); CANNABINOID SCREEN,URINE NEGATIVE (NEGATIVE); COCAINE SCREEN,URINE NEGATIVE (NEGATIVE); METHADONE SCREEN, URINE NEGATIVE (NEGATIVE); OPIATE SCREEN,URINE NEGATIVE (NEGATIVE)
[2021-09-01 17:35] LABS: PHENCYCLIDINE SCREEN,URINE NEGATIVE (NEGATIVE)
== END 2021-09-01 18:34 | disposition left against medical advice (07) ==
LOC: EMS 16:10
DX: F25.1 Schizoaffective disorder, depressive type (principal)
CPT/HCPCS: 36415; 80053; 80307; 85025; 99284; G0480

== ENCOUNTER 2024-02-18 12:43 | Inpatient (IN) | payer MEDICAID ==
[~2024-02-18] VITALS: Ht 190.5 cm; Wt 122.2 kg
[~2024-02-18 12:43] MED LIST changes: -CITA-144 PO; -GABA-1181 PO; -NALT50TA6 PO
[2024-02-18 14:55] LABS: GLUCOMETER DEV NAME(LOC) POC.BV; POC SARS-COV2 AG, FIA NEGATIVE (NEGATIVE)
[2024-02-18] MEDS ORDERED: GuaiFENesin/D-METHORPHAN [SUGAR-FREE] 200-20MG/10 ML SYRUP UDCUP PO PRN (16:45)
[2024-02-18] MEDS ORDERED: MAG HYDROX/ALUMINUM HYD/SIMETH ES 30 ML SUSPENSION UDCUP PO PRN (16:45)
[2024-02-18] MEDS ORDERED: LORazepam 2 MG TABLET PO PRN (16:45)
[2024-02-18] MEDS ORDERED: ACETAMINOPHEN 325 MG TABLET PO PRN (16:45)
[2024-02-18] MEDS ORDERED: LOPERAMIDE HCL 2 MG CAPSULE PO PRN (16:45)
[2024-02-18] MEDS ORDERED: GABAPENTIN 300 MG CAPSULE PO PRN (16:45)
[2024-02-18] MEDS ORDERED: MAGNESIUM HYDROXIDE SUSPENSION 30 ML UDCUP PO PRN (16:45)
[2024-02-18] MEDS ORDERED: TUBERCULIN, PURIFIED PROTEIN DERIVATIVE 5 TU/0.1 ML SYRINGE ID ONE (16:45)
[2024-02-19] MEDS ORDERED: BuPROPion HCL XL 150 MG ER TABLET PO SCH (09:00)
[2024-02-19 09:58] VITALS: BP 140/83; PULSE 71; RESP 18; TEMP 97.1; O2SAT 96
[2024-02-19] MEDS: THIAMINE 100 MG TABLET PO SCH (16:38)
[2024-02-19] MEDS: FLUoxetine HCL 20 MG CAPSULE PO SCH (16:38)
[2024-02-19] MEDS: FOLIC ACID 1 MG TABLET PO SCH (16:38)
[2024-02-19] MEDS: MULTIVITAMINS WITH MINERALS, THERAPEUTIC TABLET PO SCH (16:38)
[2024-02-19] MEDS: OMEGA-3/DHA/EPA/FISH OIL 1,000 MG CAPSULE PO SCH (16:38)
[2024-02-19] MEDS: CloZAPine 25 MG TABLET PO SCH (16:39)
[2024-02-19] MEDS: LISINOPRIL 20 MG TABLET PO SCH (16:39)
[2024-02-19] MEDS: NALTREXONE HCL 50 MG TABLET PO SCH (16:45)
[2024-02-19] MEDS: DIVALPROEX SODIUM 500 MG ER TABLET PO SCH (21:00)
[2024-02-19] MEDS: OLANZapine 5 MG RAPDIS TABLET PO SCH (21:00)
[2024-02-19] MEDS: MELATONIN 5 MG TABLET PO SCH (21:00)
[2024-02-19] MEDS ORDERED: INSULIN LISPRO 100 UNITS/ML SQ PRN (21:15)
[2024-02-19] MEDS ORDERED: GLUCAGON,HUMAN RECOMBINANT 1 MG VIAL IM PRN (21:15)
[2024-02-19 21:30] VITALS: BP 126/82; PULSE 86; RESP 18; TEMP 98.1; O2SAT 97
[2024-02-19] MEDS: ZOLPIDEM TARTRATE 10 MG TABLET PO PRN (23:35)
[2024-02-19] MEDS: HydrOXYzine PAMOATE 50 MG CAPSULE PO PRN (23:35)
[2024-02-20 08:10] VITALS: BP 150/81; PULSE 81; RESP 18; TEMP 98.2; O2SAT 97
[2024-02-20] MEDS: CloZAPine 25 MG TABLET PO SCH ×2 (09:18→20:51)
[2024-02-20 20:57] VITALS: BP 135/84; PULSE 79; RESP 18; TEMP 97.8; O2SAT 98
[2024-02-21 10:19] VITALS: BP 142/94; PULSE 89; RESP 18; TEMP 96.6; O2SAT 97
[2024-02-21] MEDS: CloZAPine 25 MG TABLET PO SCH ×2 (11:28→21:24)
[2024-02-21 20:50] VITALS: BP 132/79; PULSE 93; RESP 18; TEMP 98; O2SAT 93
[2024-02-21] MEDS: OLANZapine 5 MG RAPDIS TABLET PO PRN (21:24)
[2024-02-21] MEDS: OLANZapine 10 MG RAPDIS TABLET PO SCH (21:28)
[2024-02-22 09:08] VITALS: BP 113/85; PULSE 87; RESP 18; TEMP 98.5; O2SAT 95
[2024-02-22 09:25] LABS: BASOPHILS % (AUTO) 0.8 % (0.0-2.0); EOSINOPHILS % (AUTO) 5.4 % (1.0-6.0); HEMATOCRIT 40.8 % (41-53); HEMOGLOBIN 13.2 g/dL (13.5-17.5); LYMPHOCYTES # (AUTO) 1.3 K/uL (1.0-4.8); LYMPHOCYTES % (AUTO) 27.3 % (22.0-44.0); MEAN CORPUSCULAR HGB CONC 32.4 G/dL (31.0-37.0); MEAN CORPUSCULAR VOLUME 80 fL (80-100); MONOCYTES # (AUTO) 0.5 K/uL (0.1-1.0); MONOCYTES % (AUTO) 10.2 % (2.0-9.0); NEUTROPHILS # (AUTO) 2.7 K/uL (1.8-7.7); NEUTROPHILS % (AUTO) 56.3 % (40.0-70.0); PLATELET COUNT (AUTO) 239 K/uL (150-450); RED CELL DISTRIBUTION WIDTH 16.1 % (11.5-14.5); WHITE BLOOD COUNT (AUTO) 4.9 K/uL (4.5-11.0)
[2024-02-22 09:48] LABS: ALANINE AMINOTRANSFERASE 17 U/L (12-78); ALBUMIN 3.1 g/dL (3.4-5.0); ALKALINE PHOSPHATASE 121 U/L (46-116); ANION GAP 9 mmol/L (8-16); ASPARTATE AMINOTRANSFERASE 12 U/L (15-37); BILIRUBIN,TOTAL 0.3 mg/dL (0.1-1.0); CALCIUM, TOTAL 8.4 mg/dL (8.8-10.5); CARBON DIOXIDE 27 mmol/L (22-29); CHLORIDE 105 mmol/L (98-107); CHOL/HDL RATIO 2.8 (4.2-7.3); CHOLESTEROL 148 mg/dL (131-200); CREATININE 1.19 mg/dL (0.60-1.30); FREE T4 (FREE THYROXINE) 0.86 ng/dL (0.76-1.46); GLOMERULAR FILTR. RATE CALC > 60 mL/min (>60); GLUCOSE,RANDOM 106 mg/dL (70-110); HDL CHOLESTEROL 52 mg/dL (40-60); LDL CHOL (CALC.) 75 mg/dL (0-130); POTASSIUM 4.2 mmol/L (3.5-5.1); SODIUM SERUM 141 mmol/L (136-145); THYROID STIMULATING HORMONE 0.57 uIU/mL (0.36-3.74); TOTAL PROTEIN, SERUM 6.1 g/dL (6.4-8.2); TRIGLYCERIDES 103 mg/dL (15-150); UREA NITROGEN, BLOOD 11 mg/dL (7-18)
[2024-02-22 09:55] LABS: HEMOGLOBIN A1C 6.2 % (3.8-5.6)
[2024-02-22] MEDS: CloZAPine 25 MG TABLET PO SCH (10:50)
[2024-02-22 20:37] VITALS: BP 127/88; PULSE 97; RESP 18; TEMP 97; O2SAT 97
[2024-02-22 23:00] VITALS: PULSE 88; RESP 18; O2SAT 95
[2024-02-23 09:21] VITALS: BP 114/68; PULSE 97; RESP 18; TEMP 98; O2SAT 97
[2024-02-23 20:23] VITALS: BP 135/90; PULSE 91; RESP 18; TEMP 97.1; O2SAT 96
[2024-02-24 08:29] VITALS: RESP 18
[2024-02-24] MEDS: CloZAPine 25 MG TABLET PO SCH (09:26)
[2024-02-24 21:09] VITALS: BP 122/78; PULSE 94; RESP 18; TEMP 98.1; O2SAT 98
[2024-02-24] MEDS: CloZAPine 100 MG TABLET PO SCH (21:50)
[2024-02-25 07:53] LABS: BASOPHILS % (AUTO) 1.2 % (0.0-2.0); EOSINOPHILS % (AUTO) 6.9 % (1.0-6.0); HEMATOCRIT 40.8 % (41-53); HEMOGLOBIN 13.5 g/dL (13.5-17.5); LYMPHOCYTES # (AUTO) 1.4 K/uL (1.0-4.8); LYMPHOCYTES % (AUTO) 34.4 % (22.0-44.0); MEAN CORPUSCULAR HEMOGLOBIN 26.3 pg (26.0-34.0); MEAN CORPUSCULAR VOLUME 80 fL (80-100); MONOCYTES # (AUTO) 0.4 K/uL (0.1-1.0); MONOCYTES % (AUTO) 9.5 % (2.0-9.0); PLATELET COUNT (AUTO) 239 K/uL (150-450); RED BLOOD CELL COUNT(AUTO) 5.12 MIL/uL (4.50-5.90); RED CELL DISTRIBUTION WIDTH 15.9 % (11.5-14.5); WHITE BLOOD COUNT (AUTO) 4.2 K/uL (4.5-11.0)
[2024-02-25] MEDS: CloZAPine 25 MG TABLET PO SCH (08:08)
[2024-02-25 10:09] VITALS: BP 150/81; PULSE 97; RESP 19; TEMP 98; O2SAT 97
[2024-02-25] MEDS: OLANZapine 5 MG RAPDIS TABLET PO SCH (20:43)
[2024-02-25] MEDS: CloZAPine 100 MG TABLET PO SCH (20:44)
[2024-02-25 21:12] VITALS: BP 127/81; PULSE 103; RESP 18; TEMP 98.3; O2SAT 97
[2024-02-26 08:25] LABS: HEMOGLOBIN A1C 6.2 % (3.8-5.6)
[2024-02-26] MEDS: CloZAPine 25 MG TABLET PO SCH (09:27)
[2024-02-26 10:59] VITALS: BP 123/83; PULSE 60; RESP 18; TEMP 98.6; O2SAT 98
[2024-02-26] MEDS: CloZAPine 100 MG TABLET PO SCH (20:52)
[2024-02-26] MEDS: OLANZapine 10 MG RAPDIS TABLET PO SCH (20:52)
[2024-02-26 22:53] VITALS: BP 141/87; PULSE 90; RESP 18; TEMP 97.1; O2SAT 98
[2024-02-27] MEDS: CloZAPine 100 MG TABLET PO SCH (09:09)
[2024-02-27 09:42] VITALS: BP 154/96; PULSE 86; RESP 18; TEMP 97.9; O2SAT 95
[2024-02-27] MEDS ORDERED: OLANZapine 5 MG RAPDIS TABLET PO SCH (21:00)
[2024-02-27 21:26] VITALS: BP 150/90; PULSE 96; RESP 18; TEMP 98.3; O2SAT 96
[2024-02-28 13:17] VITALS: BP 127/84; PULSE 86; RESP 18; TEMP 97.9; O2SAT 95
[2024-02-28] MEDS ORDERED: MELA5TAB40 PO (18:37)
[2024-02-28] MEDS ORDERED: DIVA500T69 PO (18:37)
[2024-02-28] MEDS ORDERED: NALT50TA33 PO (18:37)
[2024-02-28] MEDS ORDERED: FLUO20CA36 PO (18:37)
[2024-02-28] MEDS ORDERED: CLOZ100T61 PO (18:37)
[2024-02-28] MEDS ORDERED: OMEG-135 PO (18:37)
[2024-02-28 22:05] VITALS: BP 152/98; PULSE 91; RESP 17; TEMP 97.5; O2SAT 97
[2024-02-29 09:32] VITALS: BP 159/95; PULSE 99; RESP 18; TEMP 98.8; O2SAT 95
[2024-02-29] MEDS: CloZAPine 25 MG TABLET PO SCH (09:37)
[2024-02-29] MEDS ORDERED: LISI-894 PO (11:08)
[2024-02-29] MEDS ORDERED: CloZAPine 100 MG TABLET PO SCH (21:00)
[2024-03-01] MEDS ORDERED: CloZAPine 25 MG TABLET PO SCH (09:00)
[2024-03-01] MEDS ORDERED: CloZAPine 100 MG TABLET PO SCH (21:00)
[2024-03-02] MEDS ORDERED: CloZAPine 100 MG TABLET PO SCH ×2 (09:00→21:00)
== END 2024-02-29 13:15 | disposition home or self-care (01) | DRG 750 ==
LOC: 3EI 02-19 07:36
PROVIDERS: ADMIT Psychiatry & Neurology Psychiatry; ATTEND Psychiatry & Neurology Psychiatry
PROC: GZHZZZZ Group Psychotherapy (ICD-10-PCS; principal; 2024-02-19)
DX: F25.0 Schizoaffective disorder, bipolar type (principal); G93.41 Metabolic encephalopathy; F17.200 Nicotine dependence, unspecified, uncomplicated; F60.0 Paranoid personality disorder; Z20.822 Contact with and (suspected) exposure to COVID-19; G47.33 Obstructive sleep apnea (adult) (pediatric); I10 Essential (primary) hypertension; J44.9 Chronic obstructive pulmonary disease, unspecified; K21.9 Gastro-esophageal reflux disease without esophagitis
CPT/HCPCS: 80053; 80061; 80164; 83036; 84439; 84443; 85025; 86592; 94660; Q9967

== ENCOUNTER 2024-02-18 18:01 | Emergency (ER) | payer MEDICAID, OTHER ==
[~2024-02-18] VITALS: Ht 190.5 cm; Wt 110.5 kg
[2024-02-18 19:06] LABS: BASOPHILS % (AUTO) 2.1 % (0.0-2.0); EOSINOPHILS % (AUTO) 4.3 % (1.0-6.0); HEMATOCRIT 41.5 % (41-53); HEMOGLOBIN 13.6 g/dL (13.5-17.5); LYMPHOCYTES # (AUTO) 1.5 K/uL (1.0-4.8); LYMPHOCYTES % (AUTO) 31.4 % (22.0-44.0); MEAN CORPUSCULAR HEMOGLOBIN 26.3 pg (26.0-34.0); MEAN CORPUSCULAR HGB CONC 32.7 G/dL (31.0-37.0); MEAN CORPUSCULAR VOLUME 81 fL (80-100); MONOCYTES # (AUTO) 0.5 K/uL (0.1-1.0); MONOCYTES % (AUTO) 11.1 % (2.0-9.0); NEUTROPHILS # (AUTO) 2.4 K/uL (1.8-7.7); NEUTROPHILS % (AUTO) 51.1 % (40.0-70.0); PLATELET COUNT (AUTO) 267 K/uL (150-450); RED BLOOD CELL COUNT(AUTO) 5.16 MIL/uL (4.50-5.90); RED CELL DISTRIBUTION WIDTH 15.7 % (11.5-14.5); WHITE BLOOD COUNT (AUTO) 4.7 K/uL (4.5-11.0)
[2024-02-18 19:15] LABS: ANION GAP 7 mmol/L (8-16); CALCIUM, TOTAL 9.3 mg/dL (8.8-10.5); CARBON DIOXIDE 31 mmol/L (22-29); CHLORIDE 105 mmol/L (98-107); CREATININE 1.29 mg/dL (0.60-1.30); GLOMERULAR FILTR. RATE CALC > 60 mL/min (>60); GLUCOSE,RANDOM 99 mg/dL (70-110); POTASSIUM 3.9 mmol/L (3.5-5.1); SODIUM SERUM 143 mmol/L (136-145); UREA NITROGEN, BLOOD 13 mg/dL (7-18)
[2024-02-18 19:21] LABS: ALANINE AMINOTRANSFERASE 28 U/L (12-78); ALBUMIN 3.8 g/dL (3.4-5.0); ALKALINE PHOSPHATASE 145 U/L (46-116); ASPARTATE AMINOTRANSFERASE 16 U/L (15-37); BILIRUBIN,TOTAL 0.3 mg/dL (0.1-1.0); TOTAL PROTEIN, SERUM 7.3 g/dL (6.4-8.2)
[2024-02-18 19:28] LABS: ALCOHOL, BLOOD (SERUM) < 3 mg/dL (0-10)
[2024-02-18 20:52] LABS: PH,URINE DRUG SCREEN 7.5 (5.0-8.0)
[2024-02-18 20:59] LABS: ALCOHOL, URINE DRUG SCREEN NEGATIVE (NEGATIVE); AMPHET/METH SCREEN,URINE NEGATIVE (NEGATIVE); BARBITURATE SCREEN, URINE NEGATIVE (NEGATIVE); BENZODIAZEPINES SCREEN,URINE NEGATIVE (NEGATIVE); CANNABINOID SCREEN,URINE NEGATIVE (NEGATIVE); COCAINE SCREEN,URINE NEGATIVE (NEGATIVE); METHADONE SCREEN, URINE NEGATIVE (NEGATIVE); OPIATE SCREEN,URINE NEGATIVE (NEGATIVE); PHENCYCLIDINE SCREEN,URINE NEGATIVE (NEGATIVE)
[2024-02-19 03:49] VITALS: TEMP 97.7
[2024-02-19] MEDS: CloZAPine 25 MG TABLET PO ONE (05:27)
[2024-02-19 07:57] VITALS: BP 134/86; PULSE 62; RESP 16
== END 2024-02-19 12:41 | disposition admitted as inpatient to this hospital (09) ==
LOC: EMS 18:19
DX: F25.1 Schizoaffective disorder, depressive type (principal); R45.851 Suicidal ideations; I10 Essential (primary) hypertension; J44.9 Chronic obstructive pulmonary disease, unspecified; K21.9 Gastro-esophageal reflux disease without esophagitis; F17.210 Nicotine dependence, cigarettes, uncomplicated; F12.90 Cannabis use, unspecified, uncomplicated; F15.90 Other stimulant use, unspecified, uncomplicated
CPT/HCPCS: 99285; 80053; 85025; 36415; 80307; G0480

== ENCOUNTER 2024-03-08 21:41 | Inpatient (IN) | payer MEDICAID ==
[~2024-03-08] VITALS: Ht 182.9 cm; Wt 121.9 kg
[~2024-03-08 21:41] MED LIST changes: +CLOZ100T61 PO; +DIVA500T69 PO; +FLUO20CA36 PO; +LISI-894 PO; +MELA5TAB40 PO; +NALT50TA33 PO; -OLAN5TAB94 PO; +OMEG-135 PO
[2024-03-08] MEDS ORDERED: LORazepam 2 MG TABLET PO PRN (22:00)
[2024-03-08] MEDS ORDERED: OLANZapine 5 MG RAPDIS TABLET PO PRN (22:00)
[2024-03-09 07:30] VITALS: BP 134/76; PULSE 60; RESP 18; TEMP 98; O2SAT 98
[2024-03-09 08:22] VITALS: BP 132/73; PULSE 72; RESP 17; TEMP 98.2; O2SAT 100
[2024-03-09 11:39] LABS: BASOPHILS % (AUTO) 2.1 % (0.0-2.0); EOSINOPHILS % (AUTO) 5.4 % (1.0-6.0); HEMATOCRIT 38.9 % (41-53); HEMOGLOBIN 12.7 g/dL (13.5-17.5); LYMPHOCYTES # (AUTO) 1.2 K/uL (1.0-4.8); LYMPHOCYTES % (AUTO) 30.9 % (22.0-44.0); MEAN CORPUSCULAR HEMOGLOBIN 26.3 pg (26.0-34.0); MEAN CORPUSCULAR HGB CONC 32.6 G/dL (31.0-37.0); MEAN CORPUSCULAR VOLUME 81 fL (80-100); MONOCYTES # (AUTO) 0.5 K/uL (0.1-1.0); MONOCYTES % (AUTO) 12.3 % (2.0-9.0); NEUTROPHILS % (AUTO) 49.3 % (40.0-70.0); PLATELET COUNT (AUTO) 272 K/uL (150-450); RED BLOOD CELL COUNT(AUTO) 4.84 MIL/uL (4.50-5.90)
[2024-03-09 11:47] LABS: HEMOGLOBIN A1C 6.3 % (3.8-5.6)
[2024-03-09 12:16] LABS: ALANINE AMINOTRANSFERASE 22 U/L (12-78); ALKALINE PHOSPHATASE 110 U/L (46-116); ANION GAP 5 mmol/L (8-16); ASPARTATE AMINOTRANSFERASE 16 U/L (15-37); BILIRUBIN,TOTAL 0.4 mg/dL (0.1-1.0); CALCIUM, TOTAL 8.7 mg/dL (8.8-10.5); CARBON DIOXIDE 28 mmol/L (22-29); CHLORIDE 108 mmol/L (98-107); CHOL/HDL RATIO 2.6 (4.2-7.3); CHOLESTEROL 143 mg/dL (131-200); CREATININE 1.08 mg/dL (0.60-1.30); FREE T4 (FREE THYROXINE) 0.98 ng/dL (0.76-1.46); GLOMERULAR FILTR. RATE CALC > 60 mL/min (>60); GLUCOSE,RANDOM 98 mg/dL (70-110); HDL CHOLESTEROL 54 mg/dL (40-60); LDL CHOL (CALC.) 74 mg/dL (0-130); POTASSIUM 4.2 mmol/L (3.5-5.1); SODIUM SERUM 141 mmol/L (136-145); T4 (THYROXINE) 5.5 mcg/dL (4.7-13.3); THYROID STIMULATING HORMONE 0.25 uIU/mL (0.36-3.74); TOTAL PROTEIN, SERUM 5.9 g/dL (6.4-8.2); TRIGLYCERIDES 77 mg/dL (15-150); UREA NITROGEN, BLOOD 14 mg/dL (7-18)
[2024-03-09 20:04] VITALS: BP 130/71; PULSE 71; RESP 18; TEMP 98
[2024-03-09] MEDS ORDERED: GLUCAGON,HUMAN RECOMBINANT 1 MG VIAL IM PRN (22:30)
[2024-03-09] MEDS ORDERED: INSULIN LISPRO 100 UNITS/ML SQ PRN (22:30)
[2024-03-10 08:52] VITALS: BP 139/87; PULSE 86; RESP 18; TEMP 97.9; O2SAT 97
[2024-03-10] MEDS ORDERED: LOPERAMIDE HCL 2 MG CAPSULE PO PRN (18:15)
[2024-03-10] MEDS ORDERED: GuaiFENesin/D-METHORPHAN [SUGAR-FREE] 200-20MG/10 ML SYRUP UDCUP PO PRN (18:15)
[2024-03-10] MEDS ORDERED: CYANOCOBALAMIN 1,000 MCG/ML VIAL IM ONE (18:15)
[2024-03-10 20:35] VITALS: BP 119/63; PULSE 6; PULSE 60; RESP 18; TEMP 97.6; O2SAT 95
[2024-03-10] MEDS: MELATONIN 5 MG TABLET PO SCH (21:35)
[2024-03-10] MEDS: OLANZapine 5 MG RAPDIS TABLET PO SCH (21:35)
[2024-03-10] MEDS: DIAZEPAM 10 MG TABLET PO PRN (21:36)
[2024-03-11] MEDS ORDERED: DIAZEPAM 10 MG TABLET PO PRN (07:00)
[2024-03-11 08:13] VITALS: BP 115/80; PULSE 66; RESP 18; TEMP 98.1; O2SAT 97
[2024-03-11] MEDS: THIAMINE 100 MG TABLET PO SCH (08:29)
[2024-03-11] MEDS: FOLIC ACID 1 MG TABLET PO SCH (08:30)
[2024-03-11] MEDS: DIAZEPAM 10 MG TABLET PO SCH (08:30)
[2024-03-11] MEDS: MULTIVITAMINS WITH MINERALS, THERAPEUTIC TABLET PO SCH (08:30)
[2024-03-11] MEDS: NALTREXONE HCL 50 MG TABLET PO SCH (08:30)
[2024-03-11] MEDS: OMEGA-3/DHA/EPA/FISH OIL 1,000 MG CAPSULE PO SCH (08:30)
[2024-03-11] MEDS: HydrOXYzine PAMOATE 50 MG CAPSULE PO PRN (13:59)
[2024-03-11] MEDS: OLANZapine 10 MG RAPDIS TABLET PO SCH (20:10)
[2024-03-11 21:03] VITALS: BP 122/75; PULSE 70; TEMP 97.5; O2SAT 96
[2024-03-12 00:23] LABS: AMPHET/METH SCREEN,URINE NEGATIVE (NEGATIVE); BARBITURATE SCREEN, URINE NEGATIVE (NEGATIVE); BENZODIAZEPINES SCREEN,URINE POSITIVE (NEGATIVE); CANNABINOID SCREEN,URINE NEGATIVE (NEGATIVE); COCAINE SCREEN,URINE NEGATIVE (NEGATIVE); METHADONE SCREEN, URINE NEGATIVE (NEGATIVE); OPIATE SCREEN,URINE NEGATIVE (NEGATIVE); PHENCYCLIDINE SCREEN,URINE NEGATIVE (NEGATIVE)
[2024-03-12 00:24] LABS: APPEARANCE,URINE CLEAR (CLEAR); BILIRUBIN,URINE NEGATIVE (NEGATIVE); COLOR,URINE LIGHT YELLOW (YELLOW); GLUCOSE, URINE (UA) NEGATIVE (NEGATIVE); KETONES,URINE NEGATIVE (NEGATIVE); LEUKOCYTE ESTERASE ,URINE NEGATIVE (NEGATIVE); NITRATE,URINE NEGATIVE (NEGATIVE); OCCULT BLOOD,URINE NEGATIVE (NEGATIVE); PH,URINE 6.5 (5.0-8.0); PROTEIN,URINE NEGATIVE (NEGATIVE); SPECIFIC GRAVITIY, URINE 1.013 (1.003-1.030); UROBILINOGEN,URINE <=1.0 mg/dL (<=1.0)
[2024-03-12 00:30] LABS: PH,URINE DRUG SCREEN 6.5 (5.0-8.0)
[2024-03-12 00:31] LABS: ALCOHOL, URINE DRUG SCREEN NEGATIVE (NEGATIVE)
[2024-03-12 03:42] VITALS: BP 159/89; PULSE 68; RESP 18; TEMP 97; O2SAT 97
[2024-03-12 10:28] VITALS: BP 121/90; PULSE 69; RESP 18; TEMP 97.8; O2SAT 98
[2024-03-12 21:35] VITALS: BP 134/90; PULSE 99; RESP 18; TEMP 98.2; O2SAT 97
[2024-03-13] MEDS ORDERED: DIAZEPAM 5 MG TABLET PO PRN (07:00)
[2024-03-13] MEDS: DIAZEPAM 5 MG TABLET PO SCH (08:49)
[2024-03-13 19:05] VITALS: BP 135/98; PULSE 80; RESP 18; TEMP 97.8; O2SAT 95
[2024-03-13] MEDS ORDERED: GABAPENTIN 300 MG CAPSULE PO PRN (21:45)
[2024-03-13] MEDS: ZOLPIDEM TARTRATE 10 MG TABLET PO PRN (22:08)
[2024-03-13 23:32] VITALS: BP 127/87; PULSE 98; RESP 18; TEMP 97.9; O2SAT 99
[2024-03-14] MEDS ORDERED: DIAZEPAM 5 MG TABLET PO PRN (07:00)
[2024-03-14 09:00] VITALS: BP 147/98; PULSE 95; RESP 18; TEMP 98.6; O2SAT 95
[2024-03-14] MEDS: CloZAPine 25 MG TABLET PO SCH (12:32)
[2024-03-14 23:30] VITALS: BP 140/87; PULSE 94; RESP 18; TEMP 97.7; O2SAT 95
[2024-03-15 08:02] VITALS: BP 140/94; PULSE 95; RESP 18; TEMP 98.1; O2SAT 98
[2024-03-15 08:02] LABS: BASOPHILS % (AUTO) 2.2 % (0.0-2.0); EOSINOPHILS % (AUTO) 7.8 % (1.0-6.0); HEMATOCRIT 42.8 % (41-53); LYMPHOCYTES # (AUTO) 1.7 K/uL (1.0-4.8); MEAN CORPUSCULAR HEMOGLOBIN 25.9 pg (26.0-34.0); MEAN CORPUSCULAR HGB CONC 32.7 G/dL (31.0-37.0); MEAN CORPUSCULAR VOLUME 79 fL (80-100); MONOCYTES # (AUTO) 0.6 K/uL (0.1-1.0); MONOCYTES % (AUTO) 13.2 % (2.0-9.0); NEUTROPHILS % (AUTO) 41.8 % (40.0-70.0); PLATELET COUNT (AUTO) 270 K/uL (150-450); RED CELL DISTRIBUTION WIDTH 16.6 % (11.5-14.5); WHITE BLOOD COUNT (AUTO) 4.8 K/uL (4.5-11.0)
[2024-03-15] MEDS: CloZAPine 25 MG TABLET PO SCH ×2 (09:22→21:08)
[2024-03-15 20:55] VITALS: BP 134/86; PULSE 92; RESP 18; TEMP 97.9; O2SAT 99
[2024-03-16 08:27] VITALS: BP 144/93; PULSE 98; RESP 19; TEMP 97.6; O2SAT 96
[2024-03-16] MEDS: CloZAPine 25 MG TABLET PO SCH ×2 (08:48→21:11)
[2024-03-16 20:53] VITALS: BP 120/98; PULSE 97; RESP 18; TEMP 98.1; O2SAT 97
[2024-03-17] MEDS: CloZAPine 25 MG TABLET PO SCH (08:10)
[2024-03-17 09:23] VITALS: BP 150/116; PULSE 93; RESP 19; TEMP 97.8; O2SAT 99
[2024-03-17 09:25] VITALS: BP 146/91; PULSE 92
[2024-03-17] MEDS ORDERED: HydrALAZINE HCL 10 MG TABLET PO PRN (09:45)
[2024-03-17] MEDS: LISINOPRIL 20 MG TABLET PO SCH (09:50)
[2024-03-17] MEDS: AmLODIPine BESYLATE 10 MG TABLET PO SCH (09:50)
[2024-03-17 20:27] VITALS: BP 115/71; PULSE 98; RESP 18; TEMP 98.2; O2SAT 96
[2024-03-18 08:00] VITALS: BP 121/75; PULSE 97; RESP 18; TEMP 98.5; O2SAT 96
[2024-03-18 21:02] VITALS: BP 120/81; PULSE 100; RESP 19; TEMP 97.5; O2SAT 97
[2024-03-19] MEDS: CloZAPine 25 MG TABLET PO SCH (09:12)
[2024-03-19 09:46] VITALS: BP 130/83; PULSE 87; RESP 18; TEMP 98.3; O2SAT 94
[2024-03-19] MEDS: CloZAPine 100 MG TABLET PO SCH (20:19)
[2024-03-19 20:52] VITALS: BP 122/75; PULSE 80; RESP 19; TEMP 97.9
[2024-03-20 08:01] VITALS: BP 94/62; PULSE 64; RESP 18; TEMP 97.8
[2024-03-20] MEDS: CloZAPine 25 MG TABLET PO SCH (09:55)
[2024-03-20 20:35] VITALS: BP 144/80; PULSE 108; RESP 18; TEMP 98
[2024-03-20] MEDS: CloZAPine 100 MG TABLET PO SCH (21:20)
[2024-03-21 07:10] LABS: BASOPHILS % (AUTO) 0.9 % (0.0-2.0); EOSINOPHILS % (AUTO) 5.1 % (1.0-6.0); HEMATOCRIT 42.6 % (41-53); HEMOGLOBIN 14.2 g/dL (13.5-17.5); LYMPHOCYTES # (AUTO) 1.4 K/uL (1.0-4.8); LYMPHOCYTES % (AUTO) 27.7 % (22.0-44.0); MEAN CORPUSCULAR HEMOGLOBIN 26.4 pg (26.0-34.0); MEAN CORPUSCULAR HGB CONC 33.4 G/dL (31.0-37.0); MEAN CORPUSCULAR VOLUME 79 fL (80-100); MONOCYTES # (AUTO) 0.6 K/uL (0.1-1.0); MONOCYTES % (AUTO) 10.8 % (2.0-9.0); NEUTROPHILS # (AUTO) 2.9 K/uL (1.8-7.7); NEUTROPHILS % (AUTO) 55.5 % (40.0-70.0); PLATELET COUNT (AUTO) 253 K/uL (150-450); RED BLOOD CELL COUNT(AUTO) 5.39 MIL/uL (4.50-5.90); RED CELL DISTRIBUTION WIDTH 16.4 % (11.5-14.5); WHITE BLOOD COUNT (AUTO) 5.2 K/uL (4.5-11.0)
[2024-03-21 08:10] VITALS: BP 140/96; PULSE 99; RESP 18; TEMP 98.4; O2SAT 96
[2024-03-21] MEDS: CloZAPine 25 MG TABLET PO SCH (08:37)
[2024-03-21] MEDS: CloZAPine 100 MG TABLET PO SCH (20:11)
[2024-03-21 21:03] VITALS: BP 104/70; PULSE 85; RESP 18; TEMP 98.2
[2024-03-22 08:04] VITALS: BP 143/91; PULSE 100; RESP 18; TEMP 97; O2SAT 97
[2024-03-22] MEDS: CloZAPine 100 MG TABLET PO SCH (08:18)
[2024-03-22 21:38] VITALS: BP 105/67; PULSE 96; RESP 17; TEMP 98; O2SAT 97
[2024-03-23 08:34] VITALS: BP 116/79; PULSE 97; RESP 16; TEMP 97.5; O2SAT 95
[2024-03-23 21:22] VITALS: BP 110/79; PULSE 92; RESP 18; TEMP 98.8; O2SAT 95
[2024-03-24 08:00] VITALS: BP 127/81; PULSE 92; RESP 19; TEMP 98.2; O2SAT 98
[2024-03-24] MEDS: CloZAPine 25 MG TABLET PO SCH (09:21)
[2024-03-24 20:07] VITALS: BP 132/94; PULSE 96; RESP 19; TEMP 97; O2SAT 98
[2024-03-24] MEDS: CloZAPine 100 MG TABLET PO SCH (21:12)
[2024-03-25] MEDS: CloZAPine 25 MG TABLET PO SCH (08:58)
[2024-03-25 09:00] VITALS: BP 150/80; PULSE 90; RESP 18; TEMP 98; O2SAT 97
[2024-03-25 21:00] VITALS: BP 132/74; PULSE 79; RESP 18; TEMP 97.5; O2SAT 98
[2024-03-25] MEDS: CloZAPine 100 MG TABLET PO SCH (21:01)
[2024-03-26 08:53] VITALS: BP 133/77; PULSE 65; RESP 18; TEMP 97.5; O2SAT 95
[2024-03-26] MEDS: CloZAPine 100 MG TABLET PO SCH ×2 (09:35→20:59)
[2024-03-26 20:49] VITALS: BP 131/72; PULSE 80; RESP 19; TEMP 97.2; O2SAT 98
[2024-03-26] MEDS: OLANZapine 10 MG RAPDIS TABLET PO SCH (20:59)
[2024-03-26] MEDS ORDERED: CloZAPine 100 MG TABLET PO SCH ×2 (21:00)
[2024-03-27 08:15] VITALS: BP 116/71; PULSE 103; RESP 17; TEMP 97.8; O2SAT 98
[2024-03-27] MEDS: CloZAPine 100 MG TABLET PO SCH (09:25)
[2024-03-27 21:59] VITALS: BP 119/73; PULSE 98; RESP 19; TEMP 97.4; O2SAT 98
[2024-03-28 07:21] LABS: EOSINOPHILS % (AUTO) 7.5 % (1.0-6.0); HEMATOCRIT 41.3 % (41-53); HEMOGLOBIN 13.5 g/dL (13.5-17.5); LYMPHOCYTES # (AUTO) 1.7 K/uL (1.0-4.8); LYMPHOCYTES % (AUTO) 28.8 % (22.0-44.0); MEAN CORPUSCULAR HEMOGLOBIN 25.8 pg (26.0-34.0); MEAN CORPUSCULAR HGB CONC 32.6 G/dL (31.0-37.0); MEAN CORPUSCULAR VOLUME 79 fL (80-100); MONOCYTES # (AUTO) 0.5 K/uL (0.1-1.0); MONOCYTES % (AUTO) 8.3 % (2.0-9.0); NEUTROPHILS # (AUTO) 3.3 K/uL (1.8-7.7); NEUTROPHILS % (AUTO) 54.4 % (40.0-70.0); PLATELET COUNT (AUTO) 269 K/uL (150-450); RED BLOOD CELL COUNT(AUTO) 5.21 MIL/uL (4.50-5.90); RED CELL DISTRIBUTION WIDTH 16.2 % (11.5-14.5)
[2024-03-28 08:00] VITALS: BP 120/68; PULSE 96; RESP 20; TEMP 98; O2SAT 96
[2024-03-28] MEDS: GLYCOPYRROLATE 1 MG TABLET PO SCH (20:38)
[2024-03-28 23:30] VITALS: BP 124/84; PULSE 103; RESP 18; TEMP 98; O2SAT 95
[2024-03-29 08:06] LABS: CLOZAPINE & NORCLOZAPINE 330 ng/mL; NORCLOZAPINE 83 ng/mL (Not Estab.)
[2024-03-29 11:19] VITALS: BP 128/77; PULSE 102; RESP 18; TEMP 97.8; O2SAT 95
[2024-03-29 20:06] VITALS: BP 143/91; PULSE 74; RESP 18; TEMP 97.7; O2SAT 97
[2024-03-30 08:03] VITALS: BP 140/80; PULSE 86; RESP 17; TEMP 97.9; O2SAT 96
[2024-03-30 21:16] VITALS: BP 134/88; PULSE 101; RESP 20; TEMP 97.4; O2SAT 98
[2024-03-31] MEDS ORDERED: CLOZ100T61 PO ×3 (10:11→10:13)
[2024-03-31] MEDS ORDERED: GLYC1TAB27 PO (10:11)
[2024-03-31 11:43] VITALS: BP 120/79; PULSE 100; RESP 18; TEMP 97.9; O2SAT 96
[2024-03-31] MEDS ORDERED: AMLO-258 PO (12:40)
== END 2024-03-31 13:12 | disposition home or self-care (01) | DRG 750 ==
LOC: B3A 22:37 → 3EI 03-12 02:26
PROVIDERS: ADMIT Psychiatry & Neurology Psychiatry; ATTEND Psychiatry & Neurology Psychiatry
PROC: GZHZZZZ Group Psychotherapy (ICD-10-PCS; principal; 2024-03-31)
PROC: GZ51ZZZ Individual Psychotherapy, Behavioral (ICD-10-PCS; 2024-03-31)
DX: F20.9 Schizophrenia, unspecified (principal); D64.9 Anemia, unspecified; F15.10 Other stimulant abuse, uncomplicated; F41.9 Anxiety disorder, unspecified; G47.00 Insomnia, unspecified; G47.33 Obstructive sleep apnea (adult) (pediatric); I10 Essential (primary) hypertension; J44.9 Chronic obstructive pulmonary disease, unspecified; K11.7 Disturbances of salivary secretion; Z91.199 Patient's noncompliance with other medical treatment and regimen due to unspecified reason
CPT/HCPCS: 80053; 80061; 80159; 80307; 81003; 83036; 84436; 84439; 84443; 85025; 86592; 87081; Q9967

== ENCOUNTER 2024-03-11 21:19 | Emergency (ER) | payer MEDICAID, OTHER ==
[~2024-03-11] VITALS: Ht 190.5 cm; Wt 120.9 kg
[2024-03-12 00:04] VITALS: BP 138/77; PULSE 81; RESP 16; TEMP 97.6
[2024-03-12] MEDS: OLANZapine 10 MG TABLET PO ONE (02:06)
== END 2024-03-12 03:07 | disposition home or self-care (01) ==
LOC: EMS 21:21
DX: G47.30 Sleep apnea, unspecified (principal); F25.9 Schizoaffective disorder, unspecified; F10.20 Alcohol dependence, uncomplicated; J44.9 Chronic obstructive pulmonary disease, unspecified; I10 Essential (primary) hypertension; F17.210 Nicotine dependence, cigarettes, uncomplicated; F12.90 Cannabis use, unspecified, uncomplicated; F15.90 Other stimulant use, unspecified, uncomplicated; Z88.8 Allergy status to other drugs, medicaments and biological substances; Y90.9 Presence of alcohol in blood, level not specified
CPT/HCPCS: 99283